=== PATIENT | female | born 1980 | race Caucasian/White ===

== ENCOUNTER 2020-01-05 10:31 | Emergency (ER) | payer OTHER, SELFPAY ==
[2020-01-05 10:43] VITALS: BP 132/90; PULSE 110; RESP 20; TEMP 36.5; O2SAT 97
--- NOTE | 2020-01-05 11:24 | ED.URI ---
HPI - URI/Sore Throat General Chief Complaint: Upper Respiratory Infection Stated Complaint: Sore throat/Cough/Headache Time Seen by Provider: 01/05/20 11:24 Source: patient and RN notes reviewed Mode of arrival: ambulatory Limitations: no limitations History of Present Illness HPI Narrative: 39-year-old female who presents to [facility] care with complaints of sore throat, headache, ear pain, with mild cough for the past 2 days. Patient states that she has had some nasal drainage which is clear, some pressure to her ears, denies any shortness of breath or any wheezing, states that she does have a history of asthma.Patient has clear lungs on auscultation with respirations even and non labored, no tachypnea or accessory muscle use noted SAO2 97% on room air. Patient is on daily Coumadin for history of DVT's in her arms.Patient denies any known exposure to strep or influenza. MD elicited complaint: cough, sore throat, rhinorrhea and other (headache,ear pain) Pertinent past history: asthma Onset (ago): day(s) (2) Consistency: constant Severity: moderate Pain scale (0-10): 5 Description of mucous: clear Able to tolerate fluids by mouth: Yes Exacerbating factors: swallowing Relieving factors: nothing Associated symptoms: headache, rhinorrhea, sore throat, cough and other (ear pain) Treatments prior to arrival: none Related Data Home Medications Medication Instructions Recorded Confirmed bupropion HCl [Wellbutrin XL] 150 mg PO QAM 01/05/20 01/05/20 fluoxetine 60 mg PO DAILY 01/05/20 01/05/20 omeprazole 40 mg PO BID 01/05/20 01/05/20 topiramate 100 mg PO BID 01/05/20 01/05/20 Allergies Allergy/AdvReac Type Severity Reaction Status Date / Time clindamycin Allergy Intermediate Rash Verified 01/05/20 10:50 codeine AdvReac Intermediate Jittery Verified 01/05/20 10:50 Penicillins AdvReac Intermediate Dizziness Verified 01/05/20 10:50 sumatriptan AdvReac Intermediate Nausea and Verified 01/05/20 10:50 Vomiting Review of Systems Review of Systems: Narrative: CONSTITUTIONAL: Denies fever, chills, or sweats. EYES: Denies visual changes, redness, or discharge. ENT:Positive rhinorrhea, congestion, sore throat, and otalgia. CARDIOVASCULAR: Denies chest pain, palpitations, or edema. RESPIRATORY: Positive cough denies dyspnea. GASTROINTESTINAL: Denies abdominal pain, nausea, vomiting, or diarrhea. GENITOURINARY: Denies dysuria or hematuria. SKIN: Denies rash or itching. MUSCULOSKELETAL: Denies back pain, joint pain, or myalgia. NEUROLOGIC: Positive headache, numbness, or weakness. PSYCHIATRIC:History of anxiety and depression. All systems reviewed & are unremarkable except as noted in HPI and below PMFSH Past Medical History Medical History (Updated 01/06/20 @ 10:58 by Eleni Rodrigez NP) Bipolar 1 disorder DVT of upper extremity (deep vein thrombosis) GERD (gastroesophageal reflux disease) IBS (irritable bowel syndrome) Migraines Surgical History Surgical History (Updated 01/05/20 @ 11:39 by Eleni Rodrigez NP) H/O removal of thyroglossal duct cyst History of carpal tunnel repair Social History Social History (Updated 01/06/20 @ 10:56 by Eleni Rodrigez NP) Smoking status: Never smoker Living arrangements: with family Gender identity (if verbalized by the patient): Female Comments At time of signature, agree with nursing past medical, social history. There is no relevant family history pertinent to the presenting complaint Exam Narrative: Exam Narrative: GENERAL: Well-appearing, well-nourished, and in no acute distress. HEAD: Normocephalic, atraumatic. EYES: PERRLA and EOMI. ENT: Nares mild redness, clear rhinorrhea no epistaxis. Mucous membranes moist.TM's normal with good light reflex, throat red no lesions or exudate, no tonsil enlargement NECK: Supple.no lymphadenopathy CHEST: Clear to auscultation. No respiratory distress.dry cough SAO2 97% on room air HEART: Regular rate and rhythm. No murmur heard
== END 2020-01-05 11:53 | disposition home or self-care (01) ==
PROVIDERS: Emergency Provider Registered Nurse
DX: J02.9 Acute pharyngitis, unspecified (principal); J06.9 Acute upper respiratory infection, unspecified; Z86.718 Personal history of other venous thrombosis and embolism; K21.9 Gastro-esophageal reflux disease without esophagitis; Z79.01 Long term (current) use of anticoagulants
CPT/HCPCS: 87081; 87880; 99213; G0463

== ENCOUNTER 2021-12-25 18:08 | Emergency (ER) | payer OTHER, SELFPAY ==
--- NOTE | ~2021-12-25 | XR_ITS ---
EXAMINATION: XR abdomen/kub 1V EXAM DATE: 12/25/2021 19:33 INDICATION: Hematuria,Hypogastric Pain, Hx Of Stones. TECHNIQUE: Frontal projection(s) of the abdomen for interpretation. There is no prior study for sherlyn cline. FINDINGS: Several small pelvic calcifications, most likely phleboliths. No calcifications projecting over the kidney contours or expected ureteral locations. Nonobstructive bowel gas pattern, expected amount of colonic stool. There is no organomegaly. There are no osseous abnormalities identified. IMPRESSION: Pelvic calcifications most likely phleboliths. Reviewed, dictated and finalized at location . ER HOT DIP
[2021-12-25 18:16] VITALS: BP 131/81; PULSE 106; RESP 20; TEMP 37; O2SAT 98
--- NOTE | 2021-12-25 19:08 | ED.FEMALEGU ---
HPI - Female Genitourinary General Chief complaint: Vaginal Bleeding Stated complaint: migraine and heavy menstral flow Time Seen by Provider: 12/25/21 19:08 Source: patient and RN notes reviewed Mode of arrival: ambulatory Limitations: no limitations History of Present Illness HPI Narrative: 41 year old female presents with concern for vaginal bleeding and hematuria. She reports irregular menstrual periods and can not recall her last mentrual period. She also reports history of kidney stones for which she had similar symptoms. She denies abdominal pain. She reports the bleeding started six days ago. She denies fever, bodyaches, chills, sweats. She denies N/V. MD elicited complaint: vaginal bleeding Related Data Home Medications Medication Instructions Recorded Confirmed bupropion HCl [Wellbutrin XL] 150 mg PO QAM 01/05/20 12/25/21 fluoxetine 60 mg PO DAILY 01/05/20 12/25/21 omeprazole 40 mg PO BID 01/05/20 12/25/21 topiramate 100 mg PO BID 01/05/20 12/25/21 aripiprazole 2 mg PO DAILY 12/25/21 12/25/21 aripiprazole 2 mg PO DAILY 12/25/21 12/25/21 Allergies Allergy/AdvReac Type Severity Reaction Status Date / Time clindamycin Allergy Intermediate Rash Verified 12/25/21 18:24 codeine AdvReac Intermediate Jittery Verified 12/25/21 18:24 Penicillins AdvReac Intermediate Dizziness Verified 12/25/21 18:24 sumatriptan AdvReac Intermediate Nausea and Verified 12/25/21 18:24 Vomiting Review of Systems Review of Systems: CONSTITUTIONAL: Denies malaise, chills, sweats, or fever. CARDIOVASCULAR: Denies chest pain, palpitations, or edema. RESPIRATORY: Denies cough or dyspnea. GASTROINTESTINAL: Denies abdominal pain, nausea, vomiting, diarrhea GENITOURINARY: Denies dysuria, frequency, urgency, suprapubic pressure. Denies flank pain. Reports vaginal bleeding and hematuria. SKIN: Denies rash or itching. MUSCULOSKELETAL: Denies back pain or myalgia. All systems reviewed & are unremarkable except as noted in HPI and below PMFSH Past Medical History Medical History (Updated 12/25/21 @ 19:48 by Sierra Hester NP) Bipolar 1 disorder DVT of upper extremity (deep vein thrombosis) GERD (gastroesophageal reflux disease) IBS (irritable bowel syndrome) Migraines Surgical History Surgical History (Updated 01/05/20 @ 11:39 by Eleni Rodrigez NP) H/O removal of thyroglossal duct cyst History of carpal tunnel repair Social History Social History (Updated 01/06/20 @ 10:56 by Eleni Rodrigez NP) Smoking status: Never smoker Gender identity (if verbalized by the patient): Female Comments At time of signature, agree with nursing past medical, surgical, social and family history. There is no relevant family history pertinent to the presenting complaint Exam Narrative: GENERAL: Well-appearing, well-nourished, and in no acute distress. HEAD: Normocephalic. EYES: PERRLA, conjunctivae clear. NECK: Supple. No lymphadenopathy CHEST: Clear to auscultation. No respiratory distress. HEART: Regular rate and rhythm. ABDOMEN: Soft, nontender upon palpation, nondistended, normal active bowel sounds, no palpable or pulsatile masses, no guarding. No CVA tenderness SKIN: Warm, dry, no rash. NEURO: Alert and oriented x3. PSYCH: Normal mood and affect Course Course Emergency Course: Patient is aware of, understands and agrees to treatment plan. Patient agrees to proceed directly to the emergency department. Portions of this record may have been created with voice recognition software Level of Care: Express Care Visit Vital Signs Vital signs: Vital Signs Temperature 98.6 F 12/25/21 18:16 Pulse Rate 106 H 12/25/21 18:16 Respiratory Rate 20 12/25/21 18:16 Blood Pressure 131/81 12/25/21 18:16 Pulse Oximetry 98 12/25/21 18:16 Temperature 98.6 F 12/25/21 18:16 Pulse Rate 106 H 12/25/21 18:16 Respiratory Rate 20 12/25/21 18:16 Blood Pressure 131/81 12/25/21 18:16 Pulse Oximetry 98
--- NOTE | 2021-12-25 19:53 | PC.NURSE ---
NO UC ORDERED PER PROVIDER MARIJA
== END 2021-12-25 19:55 | disposition short-term general hospital (02) ==
PROVIDERS: Emergency Provider Nurse Practitioner; PCP Family Medicine
DX: N93.9 Abnormal uterine and vaginal bleeding, unspecified (principal); K21.9 Gastro-esophageal reflux disease without esophagitis; F31.9 Bipolar disorder, unspecified
CPT/HCPCS: 74018; 81003; 81025; 99213; G0463

== ENCOUNTER 2022-02-11 17:13 | Emergency (ER) | payer OTHER, SELFPAY ==
--- NOTE | 2022-02-11 17:17 | ED.URI ---
HPI - URI/Sore Throat General Chief Complaint: Ear Stated Complaint: ear and sinus pain Time Seen by Provider: 02/11/22 17:18 Source: patient and RN notes reviewed History of Present Illness HPI Narrative: Patient is a 41-year-old female who presents the urgent care with complaints of bilateral ear pain for the last 4 months. Patient states that they feel full . Patient states that for the last 2 days she has had some sinus pressure. Patient has been taking ibuprofen for the pain. Denies of any fever, nausea, vomiting or cough. No other acute complaints. No acute distress noted. Patient aware of the plan of care. Some parts of this dictation were generated by voice recognition software and may contain typographical and/or grammatical inaccuracies. Related Data Home Medications Medication Instructions Recorded Confirmed bupropion HCl [Wellbutrin XL] 150 mg PO QAM 01/05/20 12/25/21 aripiprazole [Abilify] 2 mg PO DAILY 02/11/22 02/11/22 fluoxetine [Prozac] 40 mg PO DAILY 02/11/22 02/11/22 rivaroxaban [Xarelto] 10 mg PO DAILY 02/11/22 02/11/22 Allergies Allergy/AdvReac Type Severity Reaction Status Date / Time clindamycin Allergy Intermediate Rash Verified 02/11/22 17:31 codeine AdvReac Intermediate Jittery Verified 02/11/22 17:31 Penicillins AdvReac Intermediate Dizziness Verified 02/11/22 17:31 sumatriptan AdvReac Intermediate Nausea and Verified 02/11/22 17:31 Vomiting Review of Systems Review of Systems: CONSTITUTIONAL: Denies fever, chills, or sweats. EYES: Denies visual changes, redness, or discharge. ENT: Reports of sinus pressure/congestion and bilateral otalgia CARDIOVASCULAR: Denies chest pain, palpitations, or edema. RESPIRATORY: Denies cough or dyspnea. GASTROINTESTINAL: Denies abdominal pain, nausea, vomiting, or diarrhea. GENITOURINARY: Denies dysuria or hematuria. SKIN: Denies rash or itching. MUSCULOSKELETAL: Denies back pain, joint pain, or myalgia. NEUROLOGIC: Denies headache, numbness, or weakness. All other systems reviewed are negative, except as documented in HPI. [facility] Past Medical History Medical History (Updated 02/11/22 @ 17:49 by MIKA Bartlett) Bipolar 1 disorder DVT of upper extremity (deep vein thrombosis) GERD (gastroesophageal reflux disease) IBS (irritable bowel syndrome) Migraines Surgical History Surgical History (Updated 01/05/20 @ 11:39 by Eleni Rodrigez NP) H/O removal of thyroglossal duct cyst History of carpal tunnel repair Social History Social History (Updated 01/06/20 @ 10:56 by Eleni Rodrigez NP) Smoking status: Never smoker Gender identity (if verbalized by the patient): Female Comments At the time of my signature, I reviewed and agree with the nursing past medical, surgical, social, and family history. There is no relevant family history pertinent to the patient complaint. Exam Narrative: GENERAL: This is a well-nourished, well-developed patient, in no apparent distress. HEAD: normocephalic, atraumatic. EYES: PERRL. Sclera clear/white. Vision is grossly intact. EARS: External ears normal, auditory canals clear and without drainage, TMs normal without perforation. Hearing grossly intact. NOSE: External nose normal with no obvious nasal discharge, nares without redness, no rhinorrhea. THROAT: Mucous membranes moist, posterior pharynx clear. Moderate postnasal drainage NECK: Neck supple CARDIOVASCULAR: Regular rate and rhythm without murmurs, gallops, or rubs. RESPIRATORY: Clear to auscultation. Breath sounds equal bilaterally. No wheezes, rales, or rhonchi. SKIN: warm, intact with no suspicious lesions or rash, good texture and turgor. NEURO: awake, alert, and oriented to person, place and time. There were no obvious focal neurologic abnormalities. EXTREMITIES: No clubbing, cyanosis, or edema. Course Course Level of Care: Express Care Visit Vital Signs Vital signs: Vital Signs Temperature 96.8 F L 02/11/22 17:22 Puls
[2022-02-11 17:22] VITALS: BP 103/64; PULSE 107; RESP 14; TEMP 36; O2SAT 98
== END 2022-02-11 17:55 | disposition home or self-care (01) ==
PROVIDERS: Emergency Provider Nurse Practitioner Family; PCP Family Medicine
DX: H92.03 Otalgia, bilateral (principal); K21.9 Gastro-esophageal reflux disease without esophagitis; Z86.718 Personal history of other venous thrombosis and embolism; F31.9 Bipolar disorder, unspecified
CPT/HCPCS: 99211; G0463

== ENCOUNTER 2022-04-18 15:29 | Emergency (ER) | payer OTHER, SELFPAY ==
--- NOTE | 2022-04-18 15:32 | ED.DENTAL ---
HPI - Dental/Oral General Chief complaint: Dental/Oral Stated complaint: Toothache Time Seen by Provider: 04/18/22 15:33 Source: patient and RN notes reviewed History of Present Illness HPI Narrative: Patient is a 42-year-old female who presents the urgent care with a friend with complaints of upper and lower right dental pain and swelling. Patient denies of any fever, nausea, vomiting. Patient states that started 2 days ago and she does have a dentist in which she will call on Thursday. Patient has been taking naproxen and ibuprofen without much relief. No other acute complaints. No acute distress noted. Patient aware of the plan of care. Some parts of this dictation were generated by voice recognition software and may contain typographical and/or grammatical inaccuracies. Related Data Home Medications Medication Instructions Recorded Confirmed bupropion HCl 150 mg 24 hr tablet, 150 mg PO BID 01/05/20 04/18/22 extended release (Wellbutrin XL) aripiprazole 2 mg tablet (Abilify) 2 mg PO DAILY 02/11/22 04/18/22 fluoxetine 40 mg capsule (Prozac) 40 mg PO DAILY 02/11/22 04/18/22 rivaroxaban 10 mg tablet (Xarelto) 10 mg PO DAILY 02/11/22 04/18/22 dicyclomine 20 mg tablet 20 tablet PO TID PRN Acid Reflux 04/18/22 04/18/22 omeprazole 40 mg capsule,delayed 40 mg PO DAILY 04/18/22 release Allergies Allergy/AdvReac Type Severity Reaction Status Date / Time clindamycin Allergy Intermediate Rash Verified 04/18/22 15:41 codeine AdvReac Intermediate Jittery Verified 04/18/22 15:41 Penicillins AdvReac Intermediate Dizziness Verified 04/18/22 15:41 sumatriptan AdvReac Intermediate Nausea and Verified 04/18/22 15:41 Vomiting Review of Systems Review of Systems: CONSTITUTIONAL: Denies fever, chills, or sweats. EYES: Denies visual changes, redness, or discharge. ENT: Denies rhinorrhea, congestion, sore throat, or otalgia. Reports of upper right and lower right dental pain and swelling CARDIOVASCULAR: Denies chest pain, palpitations, or edema. RESPIRATORY: Denies cough or dyspnea. GASTROINTESTINAL: Denies abdominal pain, nausea, vomiting, or diarrhea. GENITOURINARY: Denies dysuria or hematuria. SKIN: Denies rash or itching. MUSCULOSKELETAL: Denies back pain, joint pain, or myalgia. NEUROLOGIC: Denies headache, numbness, or weakness. All other systems reviewed are negative, except as documented in HPI. [facility] Past Medical History Medical History (Updated 04/18/22 @ 16:03 by MIKA Bartlett) Bipolar 1 disorder DVT of upper extremity (deep vein thrombosis) GERD (gastroesophageal reflux disease) IBS (irritable bowel syndrome) Migraines Surgical History Surgical History (Updated 01/05/20 @ 11:39 by Eleni Rodrigez NP) H/O removal of thyroglossal duct cyst History of carpal tunnel repair Social History Social History (Updated 01/06/20 @ 10:56 by Eleni Rodrigez NP) Smoking status: Never smoker Gender identity (if verbalized by the patient): Female Comments At the time of my signature, I reviewed and agree with the nursing past medical, surgical, social, and family history. There is no relevant family history pertinent to the patient complaint. Exam Narrative: GENERAL: This is a well-nourished, well-developed patient, in no apparent distress. HEAD: normocephalic, atraumatic. EYES: PERRL. Sclera clear/white. Vision is grossly intact. EARS: External ears normal, auditory canals clear and without drainage, TMs normal without perforation. Hearing grossly intact. NOSE: External nose normal with no obvious nasal discharge, nares without redness, no rhinorrhea. THROAT: Mucous membranes moist, posterior pharynx clear. NECK: Neck supple, non-tender without lymphadenopathy DENTAL: Avulsed carious upper right canine, lower right canine with surrounding abscess/erythema. Poor oral hygiene throughout with mild carious lesions and missing dentition. CARDIOVASCULAR: Regular rate and rhythm without murmurs, gallops,
[2022-04-18 15:39] VITALS: BP 129/74; PULSE 95; RESP 20; TEMP 37.3; O2SAT 98
[2022-04-18 15:45] VITALS: BP 144/94; PULSE 94; RESP 16; TEMP 36.4; O2SAT 99
== END 2022-04-18 16:10 | disposition home or self-care (01) ==
PROVIDERS: Emergency Provider Nurse Practitioner Family; PCP Family Medicine
DX: K04.7 Periapical abscess without sinus (principal); K02.9 Dental caries, unspecified; K21.9 Gastro-esophageal reflux disease without esophagitis; Z86.718 Personal history of other venous thrombosis and embolism; F31.9 Bipolar disorder, unspecified
CPT/HCPCS: 99213; G0463

== ENCOUNTER 2022-07-01 17:21 | Emergency (ER) | payer OTHER, SELFPAY ==
--- NOTE | ~2022-07-01 | XR_ITS ---
EXAM: XR abdomen/kub 1V DATE: 07/01/2022 18:10 HISTORY: RIGHT FLANK PAIN NO URINARY SYMPTOMS HX IBS . COMPARISON: 12/25/2021. FINDINGS: Clear lung bases. Normal bowel gas pattern. No organomegaly. Pelvic phleboliths. Regional bones and soft tissues normal for age. IMPRESSION: No radiographic evidence of urolithiasis or obstruction or ileus. Reviewed, dictated and finalized at location [facility].
[2022-07-01 17:29] VITALS: BP 134/87; PULSE 95; RESP 16; TEMP 36; O2SAT 99
--- NOTE | 2022-07-01 17:45 | ED.ABDPAIN ---
HPI - Abdominal Pain General Chief Complaint: Abdominal Pain Stated Complaint: Abdominal Pain Time Seen by Provider: 07/01/22 17:46 Source: patient Mode of arrival: ambulatory Limitations: no limitations History of Present Illness HPI narrative: 42 y/o female presented for c/o right flank pain for about 20 min [employer]. Rates pain 8/10, sudden onset, radiates from right lateral abdomen to back. Denies associated nausea, vomiting, constipation, diarrhea, hematuria, fever/chills, cough or shortness of breath. Endorses history of IBS but states this does not feel the same. Related Data Home Medications Medication Instructions Recorded Confirmed bupropion HCl 150 mg 24 hr tablet, 150 mg PO BID 01/05/20 04/18/22 extended release (Wellbutrin XL) aripiprazole 2 mg tablet (Abilify) 2 mg PO DAILY 02/11/22 04/18/22 fluoxetine 40 mg capsule (Prozac) 40 mg PO DAILY 02/11/22 04/18/22 rivaroxaban 10 mg tablet (Xarelto) 10 mg PO DAILY 02/11/22 04/18/22 dicyclomine 20 mg tablet 20 tablet PO TID PRN Acid Reflux 04/18/22 04/18/22 omeprazole 40 mg capsule,delayed 40 mg PO DAILY 04/18/22 release Allergies Allergy/AdvReac Type Severity Reaction Status Date / Time clindamycin Allergy Intermediate Rash Verified 07/01/22 17:45 codeine AdvReac Intermediate Jittery Verified 07/01/22 17:45 Penicillins AdvReac Intermediate Dizziness Verified 07/01/22 17:45 sumatriptan AdvReac Intermediate Nausea and Verified 07/01/22 17:45 Vomiting Review of Systems Review of Systems: CONSTITUTIONAL: Denies body aches, fever, chills EYES: Denies visual changes CARDIOVASCULAR: Denies chest pain, palpitations, or edema. RESPIRATORY: Denies cough or dyspnea. GASTROINTESTINAL: Denies abdominal pain, nausea, vomiting, or diarrhea. SKIN: Denies rash, itching, or wounds. MUSCULOSKELETAL: reports back pain NEUROLOGIC: Denies headache, numbness, tingling, or weakness. All systems reviewed & are unremarkable except as noted in HPI and below PMFSH Past Medical History Medical History Bipolar 1 disorder DVT of upper extremity (deep vein thrombosis) GERD (gastroesophageal reflux disease) IBS (irritable bowel syndrome) Migraines Surgical History Surgical History H/O removal of thyroglossal duct cyst History of carpal tunnel repair Social History Social History Smoking status: Never smoker Gender identity (if verbalized by the patient): Female Comments At time of signature, I have reviewed and agree with nursing past medical, surgical, social and family history unless otherwise noted. Please see nursing chart for further information. There is no relevant family history pertinent to the presenting complaint Exam Narrative: GENERAL: Well-appearing, well-nourished, and in no acute distress. EYES: conjunctivae clear CHEST: Speaks in full sentences. No respiratory distress. HEART: Regular rate and rhythm. Normal and equal peripheral pulses. ABD: Soft, round, mild tenderness to RLQ; BS+x4; Right flank pain is reported without tenderness to palpation. Right lateral abdominal/lower rib pain with palpation. SKIN: Warm, dry, no rash. NEURO: Alert and oriented x3. Course Course Emergency Course: Patient is aware of diagnosis, understands and agrees to treatment plan. Anticipatory guidance given. Patient agrees to follow-up as directed and is aware of reasons to seek care at the emergency department. Portions of this record may have been created with voice recognition software Level of Care: Express Care Visit Vital Signs Vital signs: Vital Signs Temperature 96.8 F L 07/01/22 17:29 Pulse Rate 95 07/01/22 17:29 Respiratory Rate 16 07/01/22 17:29 Blood Pressure 134/87 07/01/22 17:29 Pulse Oximetry 99 07/01/22 17:29 Oxygen Delivery Room Air 07/01/22 17:29 [place]
== END 2022-07-01 18:46 | disposition home or self-care (01) ==
PROVIDERS: Emergency Provider Nurse Practitioner Family; PCP Family Medicine
DX: R10.9 Unspecified abdominal pain (principal); K21.9 Gastro-esophageal reflux disease without esophagitis; Z86.718 Personal history of other venous thrombosis and embolism; F31.9 Bipolar disorder, unspecified
CPT/HCPCS: 74018; 99213; G0463

== ENCOUNTER 2022-07-17 17:45 | Emergency (ER) | payer OTHER, SELFPAY ==
--- NOTE | 2022-07-17 17:52 | ED.URI ---
HPI - URI/Sore Throat General Chief Complaint: Ear Stated Complaint: Left Ear Pain Time Seen by Provider: 07/17/22 17:52 Source: patient and RN notes reviewed History of Present Illness HPI Narrative: Patient is a 42-year-old female who presents the urgent care with complaints of left ear pain that started last night. Patient has not taken anything [id number] for her symptoms. Patient is denying of any ear pain at this time or other related upper respiratory symptoms. No other acute complaints. No acute distress noted. Patient aware of the plan of care. Some parts of this dictation were generated by voice recognition software and may contain typographical and/or grammatical inaccuracies. Related Data Home Medications Medication Instructions Recorded Confirmed bupropion HCl 150 mg 24 hr tablet, 150 mg PO BID 01/05/20 07/01/22 extended release (Wellbutrin XL) fluoxetine 40 mg capsule (Prozac) 40 mg PO DAILY 02/11/22 07/01/22 rivaroxaban 10 mg tablet (Xarelto) 10 mg PO DAILY 02/11/22 07/01/22 omeprazole 40 mg capsule,delayed 40 mg PO DAILY 04/18/22 07/01/22 release Allergies Allergy/AdvReac Type Severity Reaction Status Date / Time clindamycin Allergy Intermediate Rash Verified 07/17/22 18:01 codeine AdvReac Intermediate Jittery Verified 07/17/22 18:01 Penicillins AdvReac Intermediate Dizziness Verified 07/17/22 18:01 sumatriptan AdvReac Intermediate Nausea and Verified 07/17/22 18:01 Vomiting Review of Systems Review of Systems: CONSTITUTIONAL: Denies fever, chills, or sweats. EYES: Denies visual changes, redness, or discharge. ENT: Denies rhinorrhea, congestion, sore throat. Reports of left otalgia CARDIOVASCULAR: Denies chest pain, palpitations, or edema. RESPIRATORY: Denies cough or dyspnea. GASTROINTESTINAL: Denies abdominal pain, nausea, vomiting, or diarrhea. GENITOURINARY: Denies dysuria or hematuria. SKIN: Denies rash or itching. MUSCULOSKELETAL: Denies back pain, joint pain, or myalgia. NEUROLOGIC: Denies headache, numbness, or weakness. All other systems reviewed are negative, except as documented in HPI. [facility] Past Medical History Medical History Bipolar 1 disorder DVT of upper extremity (deep vein thrombosis) GERD (gastroesophageal reflux disease) IBS (irritable bowel syndrome) Migraines Surgical History Surgical History H/O removal of thyroglossal duct cyst History of carpal tunnel repair Social History Social History Smoking status: Never smoker Gender identity (if verbalized by the patient): Female Comments At the time of my signature, I reviewed and agree with the nursing past medical, surgical, social, and family history. There is no relevant family history pertinent to the patient complaint. Exam Narrative: GENERAL: This is a well-nourished, well-developed patient, in no apparent distress. HEAD: normocephalic, atraumatic. EYES: PERRL. Sclera clear/white. Vision is grossly intact. EARS: External ears normal, auditory canals clear and without drainage, TMs normal without perforation. Hearing grossly intact. NOSE: External nose normal with no obvious nasal discharge, nares without redness, no rhinorrhea. THROAT: Mucous membranes moist, posterior pharynx clear. Mild postnasal drainage NECK: Neck supple, CARDIOVASCULAR: Regular rate and rhythm without murmurs, gallops, or rubs. RESPIRATORY: Clear to auscultation. Breath sounds equal bilaterally. No wheezes, rales, or rhonchi. SKIN: warm, intact with no suspicious lesions or rash, good texture and turgor. NEURO: awake, alert, and oriented to person, place and time. There were no obvious focal neurologic abnormalities. EXTREMITIES: No clubbing, cyanosis, or edema. Course Course Level of Care: Express Care Visit Vital Signs Vital signs: Vital Signs
[2022-07-17 17:54] VITALS: BP 109/65; PULSE 96; RESP 16; TEMP 36.8; O2SAT 99
== END 2022-07-17 18:11 | disposition home or self-care (01) ==
PROVIDERS: Emergency Provider Nurse Practitioner Family; PCP Family Medicine
DX: H92.02 Otalgia, left ear (principal); F31.9 Bipolar disorder, unspecified; Z86.718 Personal history of other venous thrombosis and embolism; K21.9 Gastro-esophageal reflux disease without esophagitis; K58.9 Irritable bowel syndrome, unspecified
CPT/HCPCS: 99211; G0463

== ENCOUNTER 2022-08-30 13:16 | Emergency (ER) | payer OTHER, SELFPAY ==
[2022-08-30 14:30] VITALS: BP 132/84; PULSE 100; RESP 20; TEMP 36.8; O2SAT 99
--- NOTE | 2022-08-30 16:10 | ED.SKABFB ---
HPI - Skin/Abscess/Foreign Bdy General Chief complaint: Skin/Abscess/Foreign Body Stated complaint: Skin Sore Time Seen by Provider: 08/30/22 16:10 Source: patient, RN notes reviewed and old records reviewed Mode of arrival: ambulatory Limitations: no limitations History of Present Illness HPI narrative: 42-year-old female who presents to [facility] Care with complaints of red itchy spots to bilateral arms and to the right side her face. Patient has not taken anything [id number] for itching or rash. Patient has reported no new medications, soaps, foods,laundry or personal care products. Patient reports that no one in household has same rash. MD complaint: rash Onset (ago): day(s) (2) Treatments prior to arrival: none Related Data Home Medications Medication Instructions Recorded Confirmed bupropion HCl 150 mg 24 hr tablet, 150 mg PO BID 01/05/20 08/30/22 extended release (Wellbutrin XL) fluoxetine 40 mg capsule (Prozac) 40 mg PO DAILY 02/11/22 08/30/22 rivaroxaban 10 mg tablet (Xarelto) 10 mg PO DAILY 02/11/22 08/30/22 omeprazole 40 mg capsule,delayed 40 mg PO BID 04/18/22 08/30/22 release aripiprazole 2 mg tablet 2 mg PO DAILY 08/30/22 08/30/22 Allergies Allergy/AdvReac Type Severity Reaction Status Date / Time clindamycin Allergy Intermediate Rash Verified 08/30/22 14:45 codeine AdvReac Intermediate Jittery Verified 08/30/22 14:45 Penicillins AdvReac Intermediate Dizziness Verified 08/30/22 14:45 sumatriptan AdvReac Intermediate Nausea and Verified 08/30/22 14:45 Vomiting Review of Systems Review of Systems: CONSTITUTIONAL: Denies fever, chills, or sweats. CARDIOVASCULAR: Denies chest pain, palpitations, or edema. RESPIRATORY: Denies cough or dyspnea. SKIN: Reports small red raised rash to forearm for 2 days and small area to right side of chin face for 1 day with no drainage. MUSCULOSKELETAL: Denies joint pain or myalgia. NEUROLOGIC: Denies headache, numbness, or weakness. All systems reviewed & are unremarkable except as noted in HPI and below PMFSH Past Medical History Medical History Bipolar 1 disorder DVT of upper extremity (deep vein thrombosis) GERD (gastroesophageal reflux disease) IBS (irritable bowel syndrome) Migraines Surgical History Surgical History H/O removal of thyroglossal duct cyst History of carpal tunnel repair Social History Social History Smoking status: Never smoker Gender identity (if verbalized by the patient): Female Comments At time of signature, agree with nursing past medical, surgical, social and family history. There is no relevant family history pertinent to the presenting complaint Exam Narrative: GENERAL: Well-appearing, well-nourished, and in no acute distress. HEAD: Normocephalic, atraumatic. EYES: PERRLA, conjunctivae clear, and EOMI. ENT: Mucous membranes moist. Oropharynx without edema, erythema or lesions. NECK: Supple. No lymphadenopathy CHEST: Clear to auscultation. No respiratory distress. SAO2 99% on room air HEART: Regular rate and rhythm. SKIN: Warm, dry.? Patches of red raised rash which is itchy to bilateral arms and right chin and today to right side of face NEURO:? Alert and oriented x3. PSYCH: Normal mood and affect Course Course Emergency Course: Patient is aware of diagnosis, understands and agrees to treatment plan.? Anticipatory guidance given.? Patient agrees to follow-up as directed and is aware of reasons to seek care at the emergency department. Portions of this record may have been created with voice recognition software Level of Care: Express Care Visit Vital Signs Vital signs: Vital Signs Temperature 36.8 C 08/30/22 14:30 Pulse Rate 100 08/30/22 14:30 Respiratory Rate 20 08/30/22 14:30 Blood Pressure 132/84 08/30/22
== END 2022-08-30 16:30 | disposition home or self-care (01) ==
PROVIDERS: Emergency Provider Registered Nurse; PCP Family Medicine
DX: L25.9 Unspecified contact dermatitis, unspecified cause (principal)
CPT/HCPCS: 99213; G0463

== ENCOUNTER 2022-09-24 16:10 | Emergency (ER) | payer OTHER, SELFPAY ==
[2022-09-24 16:42] VITALS: BP 129/84; PULSE 139; RESP 20; TEMP 36.9; O2SAT 98
--- NOTE | 2022-09-24 18:35 | ED.URI ---
HPI - URI/Sore Throat General Chief Complaint: Upper Respiratory Infection Stated Complaint: Sore Thorat/Ear Pain Time Seen by Provider: 09/24/22 18:35 Source: patient, family, RN notes reviewed and old records reviewed Mode of arrival: ambulatory Limitations: no limitations History of Present Illness HPI Narrative: 42 year old female who presents to [facility] care with complaints of 2 day history of sore throat,fevers, headaches, ear pain and also some sinus drainage. Patient reports that she has taken Tylenol,Benadryl, and Tylenol cold and sinus medication without resolution of symptoms. Patient reports that she had COVID in May of this year, has not had COVID vaccinations or flu shot. MD elicited complaint: fever, cough, sore throat, rhinorrhea and nasal congestion Pertinent past history: other (on Xaralto) Onset (ago): day(s) (2) Pain scale (0-10): 8 Treatments prior to arrival: acetaminophen and cold medicine Related Data Home Medications Medication Instructions Recorded Confirmed bupropion HCl 150 mg 24 hr tablet, 150 mg PO BID 01/05/20 09/24/22 extended release (Wellbutrin XL) fluoxetine 40 mg capsule (Prozac) 40 mg PO DAILY 02/11/22 09/24/22 rivaroxaban 10 mg tablet (Xarelto) 10 mg PO DAILY 02/11/22 09/24/22 aripiprazole 2 mg tablet 2 mg PO DAILY 08/30/22 09/24/22 Allergies Allergy/AdvReac Type Severity Reaction Status Date / Time clindamycin Allergy Intermediate Rash Verified 09/24/22 16:51 codeine AdvReac Intermediate Jittery Verified 09/24/22 16:51 Penicillins AdvReac Intermediate Dizziness Verified 09/24/22 16:51 sumatriptan AdvReac Intermediate Nausea and Verified 09/24/22 16:51 Vomiting Review of Systems Review of Systems: CONSTITUTIONAL: Reports malaise, chills, sweats, or fever. EYES: Denies visual changes, redness, or discharge. ENT: Reports rhinorrhea, congestion, sinus pain, otalgia and sore throat. CARDIOVASCULAR: Denies chest pain, palpitations, or edema. RESPIRATORY: Reports cough.? Denies dyspnea. GASTROINTESTINAL: Denies abdominal pain, nausea, vomiting, diarrhea SKIN: Denies rash or itching. MUSCULOSKELETAL: Denies myalgia. NEUROLOGIC: Reports headache. All systems reviewed & are unremarkable except as noted in HPI and below PMFSH Past Medical History Medical History Bipolar 1 disorder DVT of upper extremity (deep vein thrombosis) GERD (gastroesophageal reflux disease) IBS (irritable bowel syndrome) Migraines Surgical History Surgical History H/O removal of thyroglossal duct cyst History of carpal tunnel repair Social History Social History Smoking status: Never smoker Gender identity (if verbalized by the patient): Female Comments At time of signature, agree with nursing past medical, surgical, social and family history. There is no relevant family history pertinent to the presenting complaint Exam Narrative: GENERAL: Well-appearing, well-nourished, and in no acute distress. HEAD: Normocephalic EYES: PERRLA, conjunctivae clear ENT: Nares clear, turbinates edematous and erythematous, clear discharge. Mucous membranes moist. TM pearly chirinos with dull light reflex bilaterally; no tragal tenderness. Oropharynx erythematous without lesions. Tonsils red and enlarged and without exudate, no drooling, no hoarseness, no trismus, uvula midline.some post nasal drainage NECK: Supple. lymphadenopathy CHEST: Clear to auscultation, breath sounds equal. No wheezing, rhonchi, rales, or stridor. No respiratory distress, speaks in full sentences. SAO2 98% on room air HEART: Regular rate and rhythm. No murmur heard. SKIN: Warm, dry, no rash. NEURO: Alert and oriented x3. PSYCH: Normal mood and affect Course Course Emergency Course: Patient is aware of diagnosis, understands and agrees to t
== END 2022-09-24 18:57 | disposition home or self-care (01) ==
PROVIDERS: Emergency Provider Registered Nurse; PCP Family Medicine
DX: J02.0 Streptococcal pharyngitis (principal); K21.9 Gastro-esophageal reflux disease without esophagitis; Z86.718 Personal history of other venous thrombosis and embolism; Z79.01 Long term (current) use of anticoagulants
CPT/HCPCS: 87880; 99213; G0463

== ENCOUNTER 2022-10-30 08:02 | Emergency (ER) | payer OTHER, SELFPAY ==
--- NOTE | 2022-10-30 08:03 | ED.URI ---
HPI - URI/Sore Throat General Chief Complaint: Upper Respiratory Infection Stated Complaint: Sore Throat Time Seen by Provider: 10/30/22 08:04 Source: patient and RN notes reviewed History of Present Illness HPI Narrative: patient is a 42-year-old female who presents to urgent care with complaints of sore throat, congestion, headache and cough. Patient states it started 3 days ago. Patient has not taken anything [id number] for her symptoms. Denies any ill exposures or fever. Denies any nausea or vomiting. No other acute complaints. No acute distress noted. Patient aware of the plan of care. Some parts of this dictation were generated by voice recognition software and may contain typographical and/or grammatical inaccuracies. Related Data Home Medications Medication Instructions Recorded Confirmed bupropion HCl 150 mg 24 hr tablet, 150 mg PO BID 01/05/20 09/24/22 extended release (Wellbutrin XL) fluoxetine 40 mg capsule (Prozac) 40 mg PO DAILY 02/11/22 09/24/22 aripiprazole 2 mg tablet 2 mg PO DAILY 08/30/22 09/24/22 rivaroxaban 20 mg tablet (Xarelto) 20 mg PO DAILY 10/30/22 10/30/22 Allergies Allergy/AdvReac Type Severity Reaction Status Date / Time clindamycin Allergy Intermediate Rash Verified 10/30/22 08:19 codeine AdvReac Intermediate Jittery Verified 10/30/22 08:19 Penicillins AdvReac Intermediate Dizziness Verified 10/30/22 08:19 sumatriptan AdvReac Intermediate Nausea and Verified 10/30/22 08:19 Vomiting Review of Systems Review of Systems: CONSTITUTIONAL: Denies fever, chills, or sweats. EYES: Denies visual changes, redness, or discharge. ENT: Reports of congestion, postnasal drainage, sore throat CARDIOVASCULAR: Denies chest pain, palpitations, or edema. RESPIRATORY: reports of cough GASTROINTESTINAL: Denies abdominal pain, nausea, vomiting, or diarrhea. GENITOURINARY: Denies dysuria or hematuria. SKIN: Denies rash or itching. MUSCULOSKELETAL: Denies back pain, joint pain, or myalgia. NEUROLOGIC: reports of headache All other systems reviewed are negative, except as documented in HPI. [facility] Past Medical History Medical History Bipolar 1 disorder DVT of upper extremity (deep vein thrombosis) GERD (gastroesophageal reflux disease) IBS (irritable bowel syndrome) Migraines Surgical History Surgical History H/O removal of thyroglossal duct cyst History of carpal tunnel repair Social History Social History Smoking status: Never smoker Gender identity (if verbalized by the patient): Female Comments At the time of my signature, I reviewed and agree with the nursing past medical, surgical, social, and family history. There is no relevant family history pertinent to the patient complaint. Exam Narrative: GENERAL: This is a well-nourished, well-developed patient, in no apparent distress. HEAD: normocephalic, atraumatic. EYES: PERRL. Sclera clear/white. Vision is grossly intact. EARS: External ears normal, auditory canals clear and without drainage, TMs normal without perforation. Hearing grossly intact. NOSE: External nose normal with no obvious nasal discharge, nares without redness, no rhinorrhea. THROAT: Mucous membranes moist, posterior pharynx clear. mild postnasal drainage NECK: Neck supple, non-tender without lymphadenopathy CARDIOVASCULAR: Regular rate and rhythm without murmurs, gallops, or rubs. RESPIRATORY: Clear to auscultation. Breath sounds equal bilaterally. No wheezes, rales, or rhonchi. SKIN: warm, intact with no suspicious lesions or rash, good texture and turgor. NEURO: awake, alert, and oriented to person, place and time. There were no obvious focal neurologic abnormalities. EXTREMITIES: No clubbing, cyanosis, or edema. Course Course Level of Care: Express Care Visit Vital Signs Vital si
[2022-10-30 08:16] VITALS: BP 131/83; PULSE 137; RESP 16; TEMP 36.6; O2SAT 97
== END 2022-10-30 08:28 | disposition home or self-care (01) ==
PROVIDERS: Emergency Provider Nurse Practitioner Family; PCP Family Medicine
DX: J02.9 Acute pharyngitis, unspecified (principal); Z20.822 Contact with and (suspected) exposure to COVID-19; K21.9 Gastro-esophageal reflux disease without esophagitis; Z86.718 Personal history of other venous thrombosis and embolism; Z79.01 Long term (current) use of anticoagulants
CPT/HCPCS: 87081; 87426; 87880; 99213; C9803; G0463

== ENCOUNTER 2023-04-14 19:19 | Emergency (ER) | payer OTHER, SELFPAY ==
[2023-04-14 19:24] VITALS: BP 127/83; PULSE 91; RESP 20; TEMP 36.9; O2SAT 98
--- NOTE | 2023-04-14 19:24 | ED.SKABFB ---
HPI - Skin/Abscess/Foreign Bdy General Chief complaint: Skin/Abscess/Foreign Body Stated complaint: rash on stomach and leg Time Seen by Provider: 04/14/23 19:24 Source: patient and RN notes reviewed History of Present Illness HPI narrative: Patient is a 43-year-old female presents to urgent care with complaints of possible rash to the lower right abdomen and right thigh. Patient states that she noticed early this morning. Patient is on Xarelto but has had no issues with bleeding on the medication. Patient states she has DVT history and bilateral arms. Patient denies any chest pain or shortness of breath. No recent change in sore also dose. Patient denies any recent falls or trauma to the areas of concern. States that the areas do not itch or cause any pain. No other acute complaints. No acute distress noted. Patient aware of the plan of care. Some parts of this dictation were generated by voice recognition software and may contain typographical and/or grammatical inaccuracies. Related Data Home Medications Medication Instructions Recorded Confirmed bupropion HCl 150 mg 24 hr tablet, 150 mg PO BID 01/05/20 04/14/23 extended release (Wellbutrin XL) fluoxetine 40 mg capsule (Prozac) 40 mg PO DAILY 02/11/22 04/14/23 aripiprazole 2 mg tablet 2 mg PO DAILY 08/30/22 04/14/23 rivaroxaban 20 mg tablet (Xarelto) 20 mg PO DAILY 10/30/22 04/14/23 metoprolol succinate 25 mg 23 mg PO DAILY 04/14/23 04/14/23 tablet,extended release 24 hr omeprazole 40 mg capsule,delayed 40 mg PO DAILY 04/14/23 04/14/23 release Allergies Allergy/AdvReac Type Severity Reaction Status Date / Time clindamycin Allergy Intermediate Rash Verified 04/14/23 19:33 codeine AdvReac Intermediate Jittery Verified 04/14/23 19:33 Penicillins AdvReac Intermediate Dizziness Verified 04/14/23 19:33 sumatriptan AdvReac Intermediate Nausea and Verified 04/14/23 19:33 Vomiting Review of Systems Review of Systems: CONSTITUTIONAL: Denies fever, chills, or sweats. EYES: Denies visual changes, redness, or discharge. ENT: Denies rhinorrhea, congestion, sore throat, or otalgia. CARDIOVASCULAR: Denies chest pain, palpitations, or edema. RESPIRATORY: Denies cough or dyspnea. GASTROINTESTINAL: Denies abdominal pain, nausea, vomiting, or diarrhea. GENITOURINARY: Denies dysuria or hematuria. SKIN: Reports of a rash to the right lower abdomen and right thigh MUSCULOSKELETAL: Denies back pain, joint pain, or myalgia. NEUROLOGIC: Denies headache, numbness, or weakness. All other systems reviewed are negative, except as documented in HPI. [facility] Past Medical History Medical History Bipolar 1 disorder DVT of upper extremity (deep vein thrombosis) GERD (gastroesophageal reflux disease) IBS (irritable bowel syndrome) Migraines Surgical History Surgical History H/O removal of thyroglossal duct cyst History of carpal tunnel repair Social History Social History Smoking status: Never smoker Living arrangements: with family Gender identity (if verbalized by the patient): Female Comments At the time of my signature, I reviewed and agree with the nursing past medical, surgical, social, and family history. There is no relevant family history pertinent to the patient complaint. Exam Narrative: GENERAL: This is a well-nourished, well-developed patient, in no apparent distress. HEAD: normocephalic, atraumatic. EYES: PERRL. Sclera clear/white. Vision is grossly intact. EARS: External ears normal NOSE: External nose normal with no obvious nasal discharge, nares without redness, no rhinorrhea. THROAT: Mucous membranes moist NECK: Neck supple SKIN: Do not raised petechiae to the right lower abdomen, 5 noted. Non raised petechiae to the left upper anterior thigh approximately 6 petechiae-no surro
== END 2023-04-14 19:41 | disposition home or self-care (01) ==
PROVIDERS: Emergency Provider Nurse Practitioner Family; PCP Family Medicine
DX: R23.3 Spontaneous ecchymoses (principal); K21.9 Gastro-esophageal reflux disease without esophagitis; Z86.711 Personal history of pulmonary embolism; F31.9 Bipolar disorder, unspecified; Z86.718 Personal history of other venous thrombosis and embolism; Z79.01 Long term (current) use of anticoagulants
CPT/HCPCS: 99211; G0463

== ENCOUNTER 2023-05-24 18:59 | Emergency (ER) | payer OTHER, SELFPAY ==
[2023-05-24 19:04] VITALS: BP 120/75; PULSE 77; RESP 18; TEMP 36.2; O2SAT 98
--- NOTE | 2023-05-24 19:30 | ED.URI ---
HPI - URI/Sore Throat General Chief Complaint: Ear Stated Complaint: Left Ear Pain Time Seen by Provider: 05/24/23 19:31 Source: patient, RN notes reviewed and old records reviewed Mode of arrival: ambulatory Limitations: no limitations History of Present Illness HPI Narrative: 43 year old female presents to [facility] care with complaints of left ear pain for one month duration after swimming in pool. Patient reports that her left ear has been increasing painful for the past 1 week, denies any drainage from ear or any pain to outside of ear. Patient denies any fevers, chills or sweats or any sinus congestion or drainage.Patient pain varies to her left ear pain increases mir she lays on her left side.She states that she has taken some Tylenol for her discomfort which patient describes as aching and at times sharp. MD elicited complaint: other (left ear pain) Onset (ago): month(s) (1 month with increased symptoms for 1 week) Pain scale (0-10): 5 Able to tolerate fluids by mouth: Yes Treatments prior to arrival: acetaminophen Related Data Home Medications Medication Instructions Recorded Confirmed bupropion HCl 150 mg 24 hr tablet, 150 mg PO BID 01/05/20 05/24/23 extended release (Wellbutrin XL) fluoxetine 40 mg capsule (Prozac) 40 mg PO DAILY 02/11/22 05/24/23 aripiprazole 2 mg tablet 2 mg PO DAILY 08/30/22 05/24/23 rivaroxaban 20 mg tablet (Xarelto) 20 mg PO DAILY 10/30/22 05/24/23 metoprolol succinate 25 mg 23 mg PO DAILY 04/14/23 05/24/23 tablet,extended release 24 hr omeprazole 40 mg capsule,delayed 40 mg PO DAILY 04/14/23 05/24/23 release cholestyramine-aspartame 4 gram 4 ea PO DAILY 05/24/23 05/24/23 oral powder for susp in a packet Allergies Allergy/AdvReac Type Severity Reaction Status Date / Time clindamycin Allergy Intermediate Rash Verified 04/14/23 19:33 Penicillins AdvReac Intermediate Dizziness Verified 04/14/23 19:33 sumatriptan AdvReac Intermediate Nausea and Verified 04/14/23 19:33 Vomiting acetaminophen AdvReac Jittery Verified 05/24/23 19:23 [From Tylenol-Codeine #3] Review of Systems Review of Systems: CONSTITUTIONAL: Denies malaise, chills, sweats, or fever. EYES: Denies visual changes, redness, or discharge. ENT: Reports no rhinorrhea, congestion, sinus pain,states left otalgia no sore throat. CARDIOVASCULAR: Denies chest pain, palpitations, or edema. RESPIRATORY: Reports no cough.? Denies dyspnea. GASTROINTESTINAL: Denies abdominal pain, nausea, vomiting, diarrhea SKIN: Denies rash or itching. MUSCULOSKELETAL: Denies myalgia. NEUROLOGIC: Denies headache. All systems reviewed & are unremarkable except as noted in HPI and below PMFSH Past Medical History Medical History Bipolar 1 disorder DVT of upper extremity (deep vein thrombosis) GERD (gastroesophageal reflux disease) IBS (irritable bowel syndrome) Migraines Surgical History Surgical History H/O removal of thyroglossal duct cyst History of carpal tunnel repair Social History Social History Smoking status: Never smoker Living arrangements: with family Gender identity (if verbalized by the patient): Female Comments At time of signature, agree with nursing past medical, surgical, social and family history. There is no relevant family history pertinent to the presenting complaint Exam Narrative: GENERAL: Well-appearing, well-nourished, and in no acute distress. HEAD: Normocephalic EYES: PERRLA, conjunctivae clear ENT: Nares clear, turbinates edematous and erythematous, clear discharge. Mucous membranes moist. TM pearly chirinos with dull light reflex bilaterally; no tragal tenderness, no drainage noted from left ear, fluid on membrane. Oropharynx erythematous without lesions. Tonsils not enlarged and without exudate, no droolin
== END 2023-05-24 19:45 | disposition home or self-care (01) ==
PROVIDERS: Emergency Provider Registered Nurse; PCP Family Medicine
DX: H69.92 Unspecified Eustachian tube disorder, left ear (principal); K21.9 Gastro-esophageal reflux disease without esophagitis; F31.9 Bipolar disorder, unspecified; Z86.718 Personal history of other venous thrombosis and embolism; Z79.01 Long term (current) use of anticoagulants
CPT/HCPCS: 99213; G0463

== ENCOUNTER 2023-06-29 18:15 | Emergency (ER) | payer OTHER, SELFPAY ==
[2023-06-29 18:20] VITALS: BP 119/84; PULSE 97; RESP 16; TEMP 36.6; O2SAT 98
[2023-06-29 18:27] VITALS: BP 119/84; PULSE 97; RESP 16; TEMP 36.6; O2SAT 98
--- NOTE | 2023-06-29 18:34 | ED.LOWEXIN ---
HPI - Extremity Injury (Lower) General Chief Complaint: Extremity Injury, Lower Stated Complaint: Right Foot Pain Source: patient and RN notes reviewed History of Present Illness HPI Narrative: 43 yo F Presents to urgent care with complaints of right foot pain x 2-3 weeks. Pt denies any injury and states it just started hurting. Pt denies any numbness or tingling. Pt does report wearing flat, soft, sandals most of the time. Pt has taken Tylenol with minimal relief. Related Data Home Medications Medication Instructions Recorded Confirmed bupropion HCl 150 mg 24 hr tablet, 150 mg PO BID 01/05/20 06/29/23 extended release (Wellbutrin XL) fluoxetine 40 mg capsule (Prozac) 40 mg PO DAILY 02/11/22 06/29/23 aripiprazole 2 mg tablet 2 mg PO DAILY 08/30/22 06/29/23 rivaroxaban 20 mg tablet (Xarelto) 20 mg PO DAILY 10/30/22 06/29/23 metoprolol succinate 25 mg 23 mg PO DAILY 04/14/23 06/29/23 tablet,extended release 24 hr omeprazole 40 mg capsule,delayed 40 mg PO DAILY 04/14/23 06/29/23 release cholestyramine-aspartame 4 gram 4 ea PO DAILY 05/24/23 06/29/23 oral powder for susp in a packet Allergies Allergy/AdvReac Type Severity Reaction Status Date / Time clindamycin Allergy Intermediate Rash Verified 06/29/23 18:25 Penicillins AdvReac Intermediate Dizziness Verified 06/29/23 18:25 sumatriptan AdvReac Intermediate Nausea and Verified 06/29/23 18:25 Vomiting acetaminophen AdvReac Jittery Verified 06/29/23 18:25 [From Tylenol-Codeine #3] Review of Systems Review of Systems: CONSTITUTIONAL: Denies fever, chills, or sweats. EYES: Denies visual changes, redness, or discharge. ENT: Denies otalgia and sore throat CARDIOVASCULAR: Denies chest pain, palpitations, or edema. RESPIRATORY: Denies cough or dyspnea. GASTROINTESTINAL: Denies abdominal pain, nausea, vomiting, or diarrhea. GENITOURINARY: Denies dysuria or hematuria. SKIN: Denies rash or itching. MUSCULOSKELETAL: right foot pain, laterally and medially, at the MTP joints NEUROLOGIC: Denies headache, numbness, or weakness. Pertinent positives per HPI. [facility] Past Medical History Medical History Bipolar 1 disorder DVT of upper extremity (deep vein thrombosis) GERD (gastroesophageal reflux disease) IBS (irritable bowel syndrome) Migraines Surgical History Surgical History H/O removal of thyroglossal duct cyst History of carpal tunnel repair Social History Social History Smoking status: Never smoker Living arrangements: with family Gender identity (if verbalized by the patient): Female Comments At the time of my signature, I reviewed and agree with the nursing past medical, surgical, social, and family history. There is no relevant family history pertinent to the patient complaint. Exam Narrative: GENERAL: This is a well-nourished, well-developed patient, in no apparent distress. HEAD: normocephalic, atraumatic. EYES: Sclera clear/white. Vision is grossly intact. EARS: External ears normal, auditory canals clear and without drainage. Hearing grossly intact. NOSE: External nose normal with no obvious nasal discharge, nares without redness, no rhinorrhea. THROAT: Mucous membranes moist, posterior pharynx clear. NECK: Neck supple, non-tender without lymphadenopathy, masses or thyromegaly. CARDIOVASCULAR: Regular rate and rhythm without murmurs, gallops, or rubs. RESPIRATORY: Clear to auscultation. Breath sounds equal bilaterally. No wheezes, rales, or rhonchi. SKIN: warm, intact with no suspicious lesions or rash, good texture and turgor. NEURO: awake, alert, and oriented to person, place and time. There were no obvious focal neurologic abnormalities. EXTREMITIES: No clubbing, cyanosis, or edema. No joint tenderness, effusion, or edema noted. BACK: Nontender without def
== END 2023-06-29 18:40 | disposition home or self-care (01) ==
PROVIDERS: Emergency Provider Nurse Practitioner Family; PCP Family Medicine
DX: M25.571 Pain in right ankle and joints of right foot (principal); K21.9 Gastro-esophageal reflux disease without esophagitis; Z86.718 Personal history of other venous thrombosis and embolism; F31.9 Bipolar disorder, unspecified; Z79.01 Long term (current) use of anticoagulants
CPT/HCPCS: 99213; G0463

== ENCOUNTER 2023-09-18 15:14 | Emergency (ER) | payer OTHER, SELFPAY ==
--- NOTE | 2023-09-18 15:16 | ED.UPPEXIN ---
HPI - Extremity Injury (Upper) General Chief Complaint: Extremity Injury, Upper Stated Complaint: Left elbow to shoulder injury Time Seen by Provider: 09/18/23 15:16 Source: patient Mode of arrival: ambulatory Limitations: no limitations History of Present Illness HPI narrative: Pham is a 43-year-old female patient presenting to the clinic today with complaints of left elbow pain is radiating up into her shoulder. She reports no known injury. States she does have a history of carpal tunnel on this arm. Reports that they are discharged burning pain in her left lateral elbow that is radiating up into her shoulder. Related Data Home Medications Medication Instructions Recorded Confirmed bupropion HCl 150 mg 24 hr tablet, 150 mg PO BID 01/05/20 09/18/23 extended release (Wellbutrin XL) fluoxetine 40 mg capsule (Prozac) 40 mg PO DAILY 02/11/22 09/18/23 aripiprazole 2 mg tablet 2 mg PO DAILY 08/30/22 09/18/23 rivaroxaban 20 mg tablet (Xarelto) 20 mg PO DAILY 10/30/22 09/18/23 metoprolol succinate 25 mg 23 mg PO DAILY 04/14/23 09/18/23 tablet,extended release 24 hr omeprazole 40 mg capsule,delayed 40 mg PO DAILY 04/14/23 09/18/23 release cholestyramine-aspartame 4 gram 4 ea PO DAILY 05/24/23 09/18/23 oral powder for susp in a packet Allergies Allergy/AdvReac Type Severity Reaction Status Date / Time clindamycin Allergy Intermediate Rash Verified 09/18/23 15:28 Penicillins AdvReac Intermediate Dizziness Verified 09/18/23 15:28 sumatriptan AdvReac Intermediate Nausea and Verified 09/18/23 15:28 Vomiting acetaminophen AdvReac Jittery Verified 09/18/23 15:28 [From Tylenol-Codeine #3] Review of Systems Review of Systems: Pertinent positives per HPI. Patient denies any fever, chills, rash, headache, visual changes, dizziness, cough, runny nose, sore throat, shortness of breath, chest pain, palpitations, nausea, vomiting, diarrhea, constipation, abdominal pain, or any urinary issues. [facility] Past Medical History Medical History Bipolar 1 disorder DVT of upper extremity (deep vein thrombosis) GERD (gastroesophageal reflux disease) IBS (irritable bowel syndrome) Migraines Surgical History Surgical History H/O removal of thyroglossal duct cyst History of carpal tunnel repair Social History Social History Smoking status: Never smoker Living arrangements: with family Gender identity (if verbalized by the patient): Female Comments At the time of my signature, I reviewed and agree with the nursing past medical, surgical, social, and family history. There is no relevant family history pertinent to the patient complaint. Exam Narrative: General: Well-developed, well nourished, in no apparent distress Head: Normocephalic, atraumatic. Cardio: Regular rate and rhythm, s1 and s2 normal, no murmur appreciated. Resp: Clear to auscultation bilaterally, no rhonchi, rales, wheezing or rubs. Musculoskeletal: No deformity,tender to palpation over the lateral epicondylitis, positive Tinel's over the lateral epicondylitis, grossly normal range of motion, muscle strength strong and equal, peripheral pulse strong, no edema, no cyanosis, normal gait and station Course Course Emergency Course: Portions of this record may have been created with voice recognition software. Level of Care: Express Care Visit Vital Signs Vital signs: Vital signs reviewed MDM - Extremity Injury (Upper) MDM Narrative Medical decision making narrative: At the time of visit patient is resting comfortably on the exam table. I suspect patient has lateral epicondylitis. Prescription for a Medrol Dosepak was sent to the pharmacy and supportive measures were discussed with the patient she voiced understanding discharge instructions and agrees to treatment pl
[2023-09-18 15:20] VITALS: BP 137/77; PULSE 91; RESP 16; TEMP 36; O2SAT 97
== END 2023-09-18 15:34 | disposition home or self-care (01) ==
PROVIDERS: Emergency Provider Nurse Practitioner Family; PCP Family Medicine
DX: M77.12 Lateral epicondylitis, left elbow (principal); K21.9 Gastro-esophageal reflux disease without esophagitis; Z86.718 Personal history of other venous thrombosis and embolism; Z79.01 Long term (current) use of anticoagulants
CPT/HCPCS: 99213; G0463

== ENCOUNTER 2024-03-29 14:58 | Emergency (ER) | payer OTHER, SELFPAY ==
[2024-03-29 15:04] VITALS: BP 124/87; PULSE 87; RESP 16; TEMP 36.6; O2SAT 98
--- NOTE | 2024-03-29 15:33 | ED.URI ---
HPI - URI/Sore Throat General Chief Complaint: Upper Respiratory Infection Stated Complaint: throat/cough/ear Time Seen by Provider: 03/29/24 15:33 Source: patient, RN notes reviewed and old records reviewed Mode of arrival: ambulatory Limitations: no limitations History of Present Illness HPI Narrative: 44 year old female with complaints of sore throat, ear pain and cough and sinus pressure for the past 3 days. Patient reports that she has had positive exposure to strep throat. Patient reports tht she has not taken any Tylenol or any ibuprofen for her discomfort, she has taken some OTC cough syrup for her cough. Patient reports that she has not had any known fevers, has felt sweaty at times. MD elicited complaint: cough, sore throat and sinus pain (pressure and ear aches) Onset (ago): day(s) (3) Severity: moderate Treatments prior to arrival: other (cough syrup) Related Data Home Medications Medication Instructions Recorded Confirmed bupropion HCl 150 mg 24 hr tablet, 150 mg PO BID 01/05/20 09/18/23 extended release (Wellbutrin XL) fluoxetine 40 mg capsule (Prozac) 40 mg PO DAILY 02/11/22 09/18/23 aripiprazole 2 mg tablet 2 mg PO DAILY 08/30/22 09/18/23 rivaroxaban 20 mg tablet (Xarelto) 20 mg PO DAILY 10/30/22 09/18/23 metoprolol succinate 25 mg 23 mg PO DAILY 04/14/23 09/18/23 tablet,extended release 24 hr omeprazole 40 mg capsule,delayed 40 mg PO DAILY 04/14/23 09/18/23 release cholestyramine-aspartame 4 gram 4 ea PO DAILY 05/24/23 09/18/23 oral powder for susp in a packet Allergies Allergy/AdvReac Type Severity Reaction Status Date / Time clindamycin Allergy Intermediate Rash Verified 09/18/23 15:28 Penicillins AdvReac Intermediate Dizziness Verified 09/18/23 15:28 sumatriptan AdvReac Intermediate Nausea and Verified 09/18/23 15:28 Vomiting acetaminophen AdvReac Jittery Verified 09/18/23 15:28 [From Tylenol-Codeine #3] Review of Systems Review of Systems: CONSTITUTIONAL: Reports malaise, chills, positive for sweats, unknown if fevers. EYES: Denies visual changes, redness, or discharge. ENT: Reports rhinorrhea, congestion, sinus pain, otalgia and sore throat. CARDIOVASCULAR: Denies chest pain, palpitations, or edema. RESPIRATORY: Reports cough.? Denies dyspnea. GASTROINTESTINAL: Denies abdominal pain, nausea, vomiting, diarrhea SKIN: Denies rash or itching. MUSCULOSKELETAL: Denies myalgia. NEUROLOGIC: Denies headache. All systems reviewed & are unremarkable except as noted in HPI and below PMFSH Past Medical History Medical History Bipolar 1 disorder DVT of upper extremity (deep vein thrombosis) GERD (gastroesophageal reflux disease) IBS (irritable bowel syndrome) Migraines Surgical History Surgical History H/O removal of thyroglossal duct cyst History of carpal tunnel repair Social History Social History Smoking status: Never smoker Living arrangements: with family Gender identity (if verbalized by the patient): Female Comments At time of signature, agree with nursing past medical, surgical, social and family history. There is no relevant family history pertinent to the presenting complaint Exam Narrative: GENERAL: Well-appearing, well-nourished, and in no acute distress. HEAD: Normocephalic EYES: PERRLA, conjunctivae clear ENT: Nares clear, turbinates edematous and erythematous, clear discharge. Mucous membranes moist. TM pearly chirinos with dull light reflex bilaterally; no tragal tenderness. Oropharynx erythematous without lesions. Tonsils red enlarged and without exudate, no drooling, no hoarseness, no trismus, uvula midline. NECK: Supple. lymphadenopathy CHEST: Clear to auscultation, breath sounds equal. No wheezing, rhonchi, rales, or stridor. No respiratory distress, speaks
== END 2024-03-29 15:46 | disposition home or self-care (01) ==
PROVIDERS: Emergency Provider Registered Nurse; PCP Family Medicine
DX: J02.0 Streptococcal pharyngitis (principal); K21.9 Gastro-esophageal reflux disease without esophagitis; Z86.718 Personal history of other venous thrombosis and embolism
CPT/HCPCS: 99213; G0463

== ENCOUNTER 2025-04-30 17:32 | Emergency (ER) | payer OTHER, SELFPAY ==
--- NOTE | ~2025-04-30 | XR_ITS ---
EXAM: [id number] DATE: 04/30/2025 18:31 HISTORY: neck pain . COMPARISON: None available. FINDINGS: Osteopenia. Craniocervical association and atlantoaxial joint are aligned. Mild degenerati ve change at the atlantodental interval. No prevertebral soft tissue swelling. Reversal of the normal cervical lordosis centered at C2-3. Vertebral body heights are maintained. Mild disc space narrowing and marginal osteophytosis in the mid and lower cervical spine. Normal facets and posterior elements . IMPRESSION: No acute fracture or traumatic malalignment detected in the cervical spine. Mild degenera tive changes, as described above. Reviewed, dictated and finalized at location K. IMPRESSION: No acute fracture or traumatic malalignment detected in the cervica l spine. Mild degenerative changes, as described above.
--- NOTE | ~2025-04-30 | XR_ITS ---
EXAM: XR shoulder RT min 2V DATE: 04/30/2025 18:31 HISTORY: right shoulder pain . COMPARISON: . FINDINGS: Normal mineralization. No fracture or dislocation. No lytic or blastic lesion. AC joint wi dening and mild degenerative change. Glenohumeral joint is maintained. No erosion or periosteal multani e. Soft tissues within normal limits. IMPRESSION: AC joint widening as can be seen with acute or chronic low-grade AC joint injury. Reviewed, dictated and finalized at location K.
[2025-04-30 17:42] VITALS: BP 112/70; PULSE 86; RESP 20; TEMP 36.7; O2SAT 98
--- NOTE | 2025-04-30 18:05 | ED_ITS ---
HPI - Extremity Problem General Chief complaint: Extremity Problem,Nontraumatic Stated complaint: back/shoulder pain Source: patient and family Mode of arrival: ambulatory Limitations: no limitations History of Present Illness HPI Narrative: Patient presents for evaluation of pain in the right upper arm that shoots into her neck for the last 4 days. No identified precipitating cause or injury. She describes the pain as shooting and like a pullled muscle. She rates her pain 8/10 in severity. She reports some numbness in her posterior neck. She states she thinks she is right-handed but she is not certain. She has tried tylenol and ibuprofen for her symptoms. She is currently on Xarelto for DVT. She states she had a bone spur surgically removed from her right shoulder a few months ago and is currently undergoing physical therapy. Related Data Home Medications ?Medication ?Instructions ?Recorded ?Confirmed ?Last Taken ?Type bupropion HCl 150 mg 24 hr tablet, 150 mg PO BID 01/05/20 09/18/23 Unknown History extended release (Wellbutrin XL) fluoxetine 40 mg capsule (Prozac) 40 mg PO DAILY 02/11/22 09/18/23 Unknown Histo ry rivaroxaban 20 mg tablet (Xarelto) 20 mg PO DAILY 10/30/22 09/18/23 Unknown History metoprolol succinate 25 mg 23 mg PO DAILY 04/14/23 09/18/23 Unknown History tablet,extended release 24 hr omeprazole 40 mg capsule,delayed 40 mg PO DAILY 04/14/23 09/18/23 Unknown History release buspirone .ROUTE 04/30/25 Unknown History oxybutynin chloride 5 mg tablet mg 04/30/25 Unknown History Allergies Allergy/AdvReac Type Severity Reaction Status Date / Time clindamycin Allergy Intermediate Rash Verified 09/18/23 15:28 codeine Allergy Unknown Unknown Verified 04/30/25 18:11 Penicillins AdvReac Intermediate Dizziness Verified 09/18/23 15:28 sumatriptan AdvReac Intermediate Nausea and Verified 09/18/23 15:28 Vomiting acetaminophen (From AdvReac Jittery Verified 09/18/23 15:28 Tylenol-Codeine #3) Review of Systems Review of Systems: CONSTITUTIONAL: Denies fever, chills, or sweats. EYES: Denies visual changes, redness, or discharge. ENT: Denies rhinorrhea, congestion, sore throat, or otalgia. CARDIOVASCULAR: Denies chest pain, palpitations, or edema. RESPIRATORY: Denies cough or dyspnea. GASTROINTESTINAL: Denies abdominal pain, nausea, vomiting, or diarrhea. GENITOURINARY: Denies dysuria or hematuria. SKIN: Denies rash or itching. MUSCULOSKELETAL: Reports neck pain and right shoulder pain. NEUROLOGIC: Reports numbness in the posterior aspect of the. Denies headache, dizziness, or weakness. PSYCHIATRIC: Denies anxiety or depression. COUNT INCLUDES THE [facility] Past Medical History Medical History DVT of upper extremity (deep vein thrombosis) Bipolar 1 disorder GERD (gastroesophageal reflux disease) IBS (irritable bowel syndrome) Migraines Surgical History Surgical History History of carpal tunnel repair H/O removal of thyroglossal duct cyst Family History Family History Mother Family history unknown Social History Social History Smoking status: Never smoker Substance use: never Living arrangements: with family Gender identity (if verbalized by the patient): Female Spiritual care concerns: No Exam Narrative: GENERAL: Well-appearing, well-nourished, and in no acute distress. HEAD: Normocephalic, atraumatic. EYES: PERRLA and EOMI. ENT: Nares clear, no rhinorrhea or epistaxis. Mucous membranes moist. Oropharynx without tonsillar hypertrophy exudate or other lesions. Bilateral TMs pearly chirinos nonbulging NECK: Supple. No adenopathy or masses. No carotid bruits or JVD. There is tenderness diffusely in the posterior neck and in the lateral musculature of the neck bilaterally CHEST: Clear to auscultation. No respiratory distress. No wheezes rales or rhonchi HEART: Regular rate and rhythm. No murmur heard. Normal peripheral pulses. ABDOMEN: Soft, nontender, nondistended, normal active bowel sounds. EXTREMITIES: There is tenderness in the right shoulder. Normal range of motion. No edema. No crepitus or deformity SKIN: Warm, dry, no rash. NEURO: No focal deficits. Alert and oriented x3. PSYCH: Normal mood and affect. Course Course Emergency Course: This is a 45-year-old female who presented for evaluation of right shoulder pain. X-ray of the neck showed degenerative changes. X-ray of the right shoulder showed AC joint widening. May be related to physical therapy following her recent shoulder surgery. She is provided with a sling. Will be discharged with tramadol. Follow up with her Orthopedic, Dr. Escobar. Go to the emergency department for worsening symptoms. Patient in agreement with plan of care. Level of Care: Express Care Visit Vital Signs Vital signs: Vital Signs Temperature 36.7 C 04/30/25 17:42 Pulse Rate 86 04/30/25 17:42 Respiratory Rate 20 04/30/25 17:42 Blood Pressure 112/70 04/30/25 17:42 Pulse Oximetry 98 04/30/25 17:42 Oxygen Delivery Room Air 04/30/25 17:42 Temperature 36.7 C 04/30/25 17:42 Pulse Rate 86 04/30/25 17:42 Respiratory Rate 20 04/30/25 17:42 Blood Pressure 112/70 04/30/25 17:42 Pulse Oximetry 98 04/30/25 17:42 Oxygen Delivery Room Air 04/30/25 17:42 MDM - Extremity (Nontraumatic) Imaging Data Radiologist's impression: EXAM: XR shoulder RT min 2V DATE: 04/30/2025 18:31 HISTORY: right shoulder pain . COMPARISON: . FINDINGS: Normal mineralization. No fracture or dislocation. No lytic or blastic lesion. AC joint widening and mild degenerative change. Glenohumeral joint is maintained. No erosion or periosteal change. Soft tissues within normal limits. IMPRESSION: AC joint widening as can be seen with acute or chronic low-grade AC joint injury. EXAM: [id number] DATE: 04/30/2025 18:31 HISTORY: neck pain . COMPARISON: None available. FINDINGS: Osteopenia. Craniocervical association and atlantoaxial joint are aligned. Mild degenerative change at the atlantodental interval. No prevertebral soft tissue swelling. Reversal of the normal cervical lordosis centered at C2-3. Vertebral body heights are maintained. Mild disc space narrowing and marginal osteophytosis in the mid and lower cervical spine. Normal facets and posterior elements. IMPRESSION: No acute fracture or traumatic malalignment detected in the cervical spine. Mild degenerative changes, as described above. Discharge Plan Discharge Clinical Impression: Acromioclavicular joint injury Patient Disposition: Home Condition: Stable Instructions: Antibiotic Form, Shoulder Pain (ED) Additional Instructions: PLEASE WEAR YOUR SLING PLEASE CALL DR. ESCOBAR FOR AN APPOINTMENT TOMORROW Patient Language: Turkmen Prescriptions: New tramadol 50 mg tablet 50 mg PO Q8H PRN (Reason: pain) Qty: 15 0RF No Action fluoxetine [Prozac] 40 mg Capsule 40 mg PO DAILY Xarelto 20 mg tablet 20 mg PO DAILY bupropion HCl [Wellbutrin XL] 150 mg Tablet Extended Release 24 Hr 150 mg PO BID omeprazole 40 mg capsule,delayed release(DR/EC) 40 mg PO DAILY metoprolol succinate 25 mg tablet extended release 24 hr 23 mg PO DAILY buspirone [BuSpar] .ROUTE oxybutynin chloride 5 mg tablet Follow-up/Referrals: Luz,Mack Palomino MD [Non-Staff] - Hearn,Stephen Cavazos MD [Primary Care Provider] - Time of Disposition: 19:06
== END 2025-04-30 19:12 | disposition home or self-care (01) ==
PROVIDERS: Emergency Provider Nurse Practitioner; PCP Family Medicine
DX: S49.91XA Unspecified injury of right shoulder and upper arm, initial encounter (principal); X58.XXXA Exposure to other specified factors, initial encounter; Z86.718 Personal history of other venous thrombosis and embolism; Z79.01 Long term (current) use of anticoagulants; K21.9 Gastro-esophageal reflux disease without esophagitis
CPT/HCPCS: 72040; 73030; 99214; A4565; G0463

== ENCOUNTER 2025-07-27 17:00 | Emergency (ER) | payer OTHER, SELFPAY ==
--- NOTE | ~2025-07-27 | XR_ITS ---
XR knee RT min 4V 07/27/2025 18:03 INDICATION: Right knee pain PROCEDURE: 5 views right knee COMPARISON: No prior studies for comparison. FINDINGS: Fracture, dislocation or subluxation is not identified. No significant joint effusion. The soft tissues appear within normal limits. No foreign bodies are identified. IMPRESSION: 1: NO ACUTE BONE OR JOINT ABNORMALITY IDENTIFIED. Reviewed, dictated and finalized at location O.
[2025-07-27 17:14] VITALS: BP 139/79; PULSE 86; RESP 20; TEMP 36.7; O2SAT 98
--- NOTE | 2025-07-27 17:43 | ED.GENADULT ---
HPI - General Adult General Chief complaint: Extremity Injury, Lower Stated complaint: right knee pain Time Seen by Provider: 07/27/25 17:30 Source: patient, RN notes reviewed and old records reviewed Mode of arrival: ambulatory Limitations: no limitations History of Present Illness HPI narrative: 45 year old female accompanied by spouse with complaints of pain to her right anterior knee since yesterday. Patient reports that dog was playing running around and ran its head right into the anterior aspect of her right knee yesterday. Patient reports that she is on blood thinner and she does have bruising noted to her anterior knee. Patient is able to walk on her knee states some pain with bending of her knee She last took Tylenol this morning and reports that she has used ice to her right knee. MD complaint: knee pain Onset (ago): day(s) (day 2 of symptoms) Location: right and lower extremity (knee non radiating) Severity scale (1-10): 8 Quality: other (throbbing) Treatments prior to arrival: other (Tylenol) Related Data Home Medications ?Medication ?Instructions ?Recorded ?Confirmed ?Last Taken ?Type bupropion HCl 150 mg 24 hr tablet, 150 mg PO BID 01/05/20 09/18/23 Unknown History extended release (Wellbutrin XL) fluoxetine 40 mg capsule (Prozac) 40 mg PO DAILY 02/11/22 09/18/23 Unknown History rivaroxaban 20 mg tablet (Xarelto) 20 mg PO DAILY 10/30/22 09/18/23 Unknown History metoprolol succinate 25 mg 23 mg PO DAILY 04/14/23 09/18/23 Unknown History tablet,extended release 24 hr omeprazole 40 mg capsule,delayed 40 mg PO DAILY 04/14/23 09/18/23 Unknown History release buspirone .ROUTE 04/30/25 Unknown History oxybutynin chloride 5 mg tablet mg 04/30/25 Unknown History aripiprazole 5 mg tablet mg 07/27/25 Unknown History hydroxyzine pamoate 25 mg capsule mg 07/27/25 Unknown History prazosin 1 mg capsule mg 07/27/25 Unknown History Allergies Allergy/AdvReac Type Severity Reaction Status Date / Time clindamycin Allergy Intermediate Rash Verified 07/27/25 17:03 codeine Allergy Unknown Unknown Verified 07/27/25 17:03 Penicillins AdvReac Intermediate Dizziness Verified 07/27/25 17:03 sumatriptan AdvReac Intermediate Nausea and Verified 07/27/25 17:03 Vomiting acetaminophen (From AdvReac Jittery Verified 07/27/25 17:03 Tylenol-Codeine #3) Review of Systems Review of Systems: CONSTITUTIONAL: Denies fever, chills, or sweats. EYES: Denies visual changes, redness, or discharge. ENT: Denies rhinorrhea, congestion, sore throat, or otalgia. CARDIOVASCULAR: Denies chest pain, palpitations, or edema. RESPIRATORY: Denies cough or dyspnea. GASTROINTESTINAL: Denies abdominal pain, nausea, vomiting, or diarrhea. GENITOURINARY: Denies dysuria or hematuria. SKIN: Denies rash or itching. MUSCULOSKELETAL: Denies back pain,positive for right anterior knee pain after dog ran into the anterior aspect of knee, or myalgia. NEUROLOGIC: Denies headache, numbness, or weakness. PSYCHIATRIC: Positive for history of anxiety or depression. All systems reviewed & are unremarkable except as noted in HPI and below PMFSH Past Medical History Medical History DVT of upper extremity (deep vein thrombosis) Bipolar 1 disorder GERD (gastroesophageal reflux disease) IBS (irritable bowel syndrome) Migraines Surgical History Surgical History History of carpal tunnel repair H/O removal of thyroglossal duct cyst Family History Family History Mother Family history unknown Social History Social History Smoking status: Never smoker Substance use: never Living arrangements: with family Gender identity (if verbalized by the patient): Female Spiritual care concerns: No Comments At time of signature, agree with nursing past medical, surgical, social and family history. There is no relevant family history pertinent to the presenting complaint Exam Narrative: GENERAL: Well-appearing, well-nourished, and in no acute distress. HEAD: Normocephalic, atraumatic. EYES: PERRLA and EOMI. ENT: Nares clear, no rhinorrhea or epistaxis. Mucous membranes moist. NECK: Supple.no lymphadenopathy CHEST: Clear to auscultation. No respiratory distress. SAO2 98% on room air HEART: Regular rate and rhythm. No murmur heard. Normal peripheral pulses. ABDOMEN: Soft, nontender, nondistended, normal active bowel sounds. EXTREMITIES: Normal range of motion. No acute edema. reports pain to the anterior aspect of her right knee especially with movement of knee and ambulation, no acute swelling noted to anterior knee minimal bruising noted to anterior knee, patient does have full mobility of her right knee sensation and circulation is intact to right leg SKIN: Warm, dry, no rash. NEURO: No focal deficits. Alert and oriented x3. Course Course Emergency Course: Patient is aware of diagnosis, understands and agrees to treatment plan.? Anticipatory guidance given.? Patient agrees to follow-up as directed and is aware of reasons to seek care at the emergency department. Portions of this record may have been created with voice recognition software Level of Care: Express Care Visit Vital Signs Vital signs: Vital Signs Temperature 36.7 C 07/27/25 17:14 Pulse Rate 86 07/27/25 17:14 Respiratory Rate 07/27/25 17:14 Blood Pressure 139/79 07/27/25 17:14 Pulse Oximetry 98 07/27/25 17:14 Oxygen Delivery Room Air 07/27/25 17:14 Temperature 36.7 C 07/27/25 17:14 Pulse Rate 86 07/27/25 17:14 Respiratory Rate 07/27/25 17:14 Blood Pressure 139/79 07/27/25 17:14 Pulse Oximetry 98 07/27/25 17:14 Oxygen Delivery Room Air 07/27/25 17:14 Reviewed Medical Decision Making MDM Narrative Medical decision making narrative: Exam findings and imaging show no acute concerns or changes; patient is non-toxic appearing and is in no distress.? Patient is appropriate for outpatient treatment and follow-up Differential Diagnosis Differential Diagnosis: contusion to right knee, pain to right knee, bruising of anterior knee, injury right anterior knee Medical Records Medical records reviewed: Yes I reviewed the external patient's medical records. Vital Signs Vital Signs: Vital Signs Temperature 36.7 C 07/27/25 17:14 Pulse Rate 86 07/27/25 17:14 Respiratory Rate 20 07/27/25 17:14 Blood Pressure 139/79 07/27/25 17:14 Pulse Oximetry 98 07/27/25 17:14 Oxygen Delivery Room Air 07/27/25 17:14 Temperature 36.7 C 07/27/25 17:14 Pulse Rate 86 07/27/25 17:14 Respiratory Rate 20 07/27/25 17:14 Blood Pressure 139/79 07/27/25 17:14 Pulse Oximetry 98 07/27/25 17:14 Oxygen Delivery Room Air 07/27/25 17:14 reviewed Imaging Data Attestation: I personally reviewed and interpreted this imaging study as follows: My impression: no acute bone or joint abnormality Radiologist's impression: [facility] [address] [place] [address] XRay Report Signed Patient: Pham Flores : 1980 MR#: [id number] Age: 45 Acct:[id number] Loc: [facility] ADM Date: 07/27/25Attending Dr: Ordering Physician: Eleni Rodrigez APRN Date of Service: 07/27/25 Procedure(s): XR knee RT min 4V Accession Number(s): [id number] cc: Eleni Rodrigez APRN; Dhiraj, Stephen Cavazos MD~ XR knee RT min 4V 07/27/2025 18:03 INDICATION: Right knee pain PROCEDURE: 5 views right knee COMPARISON: No prior studies for comparison. FINDINGS: Fracture, dislocation or subluxation is not identified. No significant joint effusion. The soft tissues appear within normal limits. No foreign bodies are identified. IMPRESSION: 1: NO ACUTE BONE OR JOINT ABNORMALITY IDENTIFIED. Reviewed, dictated and finalized at location O. Please be advised this is a medical document. It is intended for [id number] communication. It is written in medical language and may contain unfamiliar abbreviations or verbiage. Medical documents are intended to carry relevant information, facts as evident, and the clinical opinion of the practitioner at the time of the encounter. This report may have been done utilizing a voice recognition system. Attempts have been made to correct errors. However, there may be uncorrected grammatical, spelling, and recognition errors present. The file time of this note does not necessarily represent the time of service. Dictated By: Marky Talley MD 07/27/25 1800 Signed By: <Electronically signed by Marky Talley MD in OV> Critical Care Time Critical Care Time Critical Care Time: No Discharge Plan Discharge Clinical Impression: Right knee pain Qualifiers: Chronicity: acute Qualified Code(s): M25.561 - Pain in right knee Patient Disposition: Home Condition: Stable Instructions: Antibiotic Form, Knee Pain (ED) Additional Instructions: Tylenol for pain at doses per bottle instructions Follow-up with orthopedic surgeon if any continued problems Follow-up with PCP if further problems or concerns Ice to the area 20-30 minutes 4-6 times a day Elevate above heart If your symptoms persist, change or worsen significantly before you can contact your personal physician then please, without delay, go to the emergency department for further evaluation. Follow-up with PCP in 7-10 days or sooner if needed Follow up with PCP soon in regards to your blood pressure which is elevated above threshold for referral. Blood pressure above 120/80 may indicate pre-hypertension. 139/79 Patient Language: Sami Prescriptions: No Action fluoxetine [Prozac] 40 mg Capsule 40 mg PO DAILY Xarelto 20 mg tablet 20 mg PO DAILY bupropion HCl [Wellbutrin XL] 150 mg Tablet Extended Release 24 Hr 150 mg PO BID omeprazole 40 mg capsule,delayed release(DR/EC) 40 mg PO DAILY metoprolol succinate 25 mg tablet extended release 24 hr 23 mg PO DAILY buspirone [BuSpar] .ROUTE oxybutynin chloride 5 mg tablet tramadol 50 mg tablet 50 mg PO Q8H PRN (Reason: pain) Qty: 15 0RF prazosin 1 mg capsule hydroxyzine pamoate 25 mg capsule aripiprazole 5 mg tablet Follow-up/Referrals: Dhiraj,Stephen Cavazos MD [Primary Care Provider] Time of Disposition: 18:21 Quality Phelps Coma Scale Eyes: Open Verbal: Oriented and Alert Motor: Follows Commands Phelps Coma Total Score: 15
--- OUTSIDE RECORDS SUMMARY | 2025-07-27 17:46 | XMS_ITS | Encounter Summary ---
Author Organization [facility] Address [address] [place] [address] Phone Care Team Providers Care Engineer Sergeant Name Role Phone Hema Ochoa MD Unavailable Stephen Hearn MD Primary Care Provider Fahad Glover Unavailable Mat Encinas MD Unavailable Caridad Padilla APRN, CNP Unavailable Ge Keen MD Unavailable [phone] Reason for Visit * Reason Comments Medication Refill Encounter Details Date Type Department Care Team (Late st Contact Info) Description 10/23/2023 Refill [facility] - Gastroenter[facility] [address] [place] [address] Ge Keen MD [address] [place] [address] Medication Refill Social History Tobacco Use Types Packs/Day Years Used Date Smoking Tobacco: Never Smokeless Tobacco: Never Alcohol Use Standard Drinks/Week Comments No 0 (1 standard drink = 0.6 oz pur e alcohol) Sexually Active Control Partners Comments Not Currently Male Comments No Sex and Gender Information Value Date Recorded Sex Assigned at Female 06/15/2023 6:13 PM CDT Legal Sex Female 7:47 PM CDT Gender Identity Female 06/15/2023 6:13 PM CDT Sexual Orientation Not on file documented as of this encounter Miscellaneous Notes * Telephone Encounter - Ronel Murillo RN - 10/27/2023 10:38 AM SENIOR C WEB DEVELOPER Spoke with patient, she states she is requesting a refill of the colestipol tablets. She states thecholestyramine packets make her sick. Colestipol order pended, please review and approve if appropriate. OR C WEB DEVELOPER * Telephone Encounter - Ronel Murillo RN - 10/27/2023 9:00 AM SENIOR C WEB DEVELOPER Called patient. Left message for patient to call back. OR C WEB DEVELOPER * Telephone Encounter - Ronel Murillo RN - 10/27/2023 8:59 AM SENIOR C WEB DEVELOPER Images from the original note were not included. Requested Renewals Name from pharmacy: COLESTIPOL HCL 1 GM TABLET Will file in chart as: colestipol (COLESTID) 1 GM Tablet The original prescription was discontinued on 09/21/2023 by Caridad Padilla APRN, ENVIRONMENTAL WEB CRAWLER for the following reason: Alternate therapy. Renewing this prescription may not be appropriate. Sig: TAKE 1 TABLET BY MOUTH EVERY DAY Disp: 30 Tablet ? Refills: 2 Start: 10/23/2023 Class: E Prescribe For: Irritable bowel syndrome with diarrhea Last ordered: 4 months ago (06/01/2023) by Ge Keen MD Last refill: 09/18/2023 Rx #: [id number] OR C WEB DEVELOPER documented in this encounter Plan of Treatment Not on file documented as of this encounter Visit Diagnoses Diagnosis Irritable bowel syndrome with diarrhea Irritable bowel syndrome documented in this encounter Additional Health Concerns Infection Onset Date Last Indicated Resolved Time COVID - 19 10/17/2023 10/17/2023 10/27/2023 12:1 6 AM SENIOR C WEB DEVELOPER COVID - 19 01/05/2025 01/05/2025 01/05/2025 9:48 AM SENIOR C WEB DEVELOPER documented as of this encounter Care Teams Engineer Sergeant Relationship Specialty Start Date End Date Stephen Hearn MD [address] [place] [address] [place] [address] PCP - General Family Medicine 06/15/20 Hema Ochoa MD Gastroenterology 04/28/16 Fahad Glover [address] [facility] [address] [place] [address] 06/13/21 Mat Encinas MD [address] [address] Consulting Physician Colon and Rectal Surgery 09/09/23 Caridad Padilla APRN, ENVIRONMENTAL WEB CRAWLER [address] [place] [address] Nurse Practitioner Advanced Practice Nurse 08/21/23 Ge Keen MD [address] [place] [address] Consulting Physician Gastroenterology 01/01/23 documented as of this encounter
--- OUTSIDE RECORDS SUMMARY | 2025-07-27 17:46 | XMS_ITS | Encounter Summary ---
Author Organization [facility] Address [address] [place] [place] [address] Phone Care Team Providers Care Pin Machine Tender Name Role Phone eHma Ochoa MD Unavailable Stephen Hearn MD Primary Care Provider [phone] Fahad Glover Unavailable Mat Encinas MD Unavailable Caridad Padilla APRN, LAST SORTER Unavailable Ge Keen MD Unavailable [phone] Reason for Visit * Reason Comments Medication Refill Encounter Details Date Type Department Care Team (Late st Contact Info) Description 07/20/2025 Refill [facility] - Gastroenterology [facility] [address] [place] [id number] Caridad Padilla APRN, LAST SORTER [address] [place] [address] Medication Refill Social History Tobacco Use Types Packs/Day Years Used Date Smoking Tobacco: Never Smokeless Tobacco: Never Alcohol Use Standard Drinks/Week Comments No 0 (1 standard drink = 0.6 oz pur e alcohol) [facility] Utilities Answer Date Recorded In the past 12 months has [employer], gas, oil, or water [employer] threatened to shut off services in your home? No 02/06/2024 Social Connection and Isolation Panel Answer Date Recorded In a typical week, how many times do you talk on the phone with family, friends, or neighbors? More than three times a week 02/06/2024 How often do you get togethe r with friends or relatives? Once a week 02/06/2024 How often do you attend chur ch or jain services? Never 02/06/2024 Do you belong to any clubs o r organizations such as yarsanism groups, unions, fraternal or athletic groups, or school groups? No 02/06/2024 How often do you attend meet ings of the clubs or organizations you belong to? Never 02/06/2024 Are you , , di vorced, , never , or living with a partner? 02/06/2024 AUDIT-C Answer Date Recorded Q1: How often do you have a drink containing alcohol? Never 02/06/2024 Q2: How many drinks containi ng alcohol do you have on a typical day when you are drinking? Patient does not drink Q3: How often do you have si x or more drinks on one occasion? Never 02/06/2024 Overall Financial Resource Strain (CARDIA) Answe r Date Recorded How hard is it for you to pa y for the very basics like food, housing, medical care, and heating? Not hard at all 02/06/2024 [facility] - Occupational Stress Questionnaire Answer Date Recorded Do you feel stress - tense, restless, nervous, or anxious, or unable to sleep at night because your mind is troubled all the time - these days? Rather much 02/06/2024 Exercise Vital Sign Answer Date Recorde d On average, how many days pe r week do you engage in moderate to strenuous exercise (like a brisk walk)? 0 days 02/06/2024 On average, how many minutes do you engage in exercise at this level? 0 min 02/06/2024 Hunger Vital Sign Answer Date Recorded Within the past 12 months, y ou worried that your food would run out before you got the money to buy more. Never true 02/06/20 24 Within the past 12 months, t he food you bought just didn't last and you didn't have money to get more. Never true 02/06/2024 PRAPARE - Transportation Answer Date Re corded In the past 12 months, has l ack of transportation kept you from medical appointments or from getting medications? No 04/2024 In the past 12 months, has l ack of transportation kept you from meetings, work, or from getting things needed for daily living? No 02/06/2024 Housing Stability Vital Sign Answer Jewel e Recorded In the last 12 months, was t here a time when you were not able to pay the mortgage or rent on time? No 02/06/2024 In the last 12 months, how many places have you lived? 1 02/06/2024 In the last 12 months, was t here a time when you did not have a steady place to sleep or slept in a residential (including now)? No 02/06/2024 Sexually Active Control Partners Comments Not Currently Male Comments No Sex and Gender Information Value Date Recorded Sex Assigned at Female 06/15/2023 6:13 PM CDT Legal Sex Female 7:47 PM CDT Gender Identity Female 06/15/2023 6:13 PM CDT Sexual Orientation Not on file documented as of this encounter Plan of Treatment Not on file documented as of this encounter Visit Diagnoses Diagnosis Gastroesophageal reflux disease without esophagitis Esophageal reflux documented in this encounter Care Teams Pin Machine Tender Relationship Specialty Start Date End Date Stephen Hearn MD [address] [facility] [address] [place] [address] PCP - General Family Medicine 06/15/20 eHma Ochoa MD Gastroenterology 04/28/16 Fahad Glover [address] [facility] [address] [place] [address] 06/13/21 Mat Encinas MD [address] [facility] [address] [place] [address] Consulting Physician Colon and Rectal Surgery 09/09/23 Caridad Padilla APRN, LAST SORTER [address] [place] [address] Nurse Practitioner Advanced Practice Nurse 08/21/23 Ge Keen MD [address] [place] [address] Consulting Physician Gastroenterology 01/01/23 documented as of this encounter
--- OUTSIDE RECORDS SUMMARY | 2025-07-27 17:46 | XMS_ITS | Clinical Summary ---
Author Organization [facility] Address [address] [place] [address] Care Team Providers Care Resident Care Spec Name Role Phone Stephen Hearn MD Primary Care Provider [phone] Sukhwinder Mckinney MD Unavailable [phone] Jason Alegria Unavailable [phone] Allergies Active Allergy Reactions Criticality Noted Date Comments Clindamycin Rash Medium 01/09/2018 Codeine Other (See comments) Low shaking Penicillins Nausea only Low Sulfa (Sulfonamide Antibiotics) Nausea only Low Sumatriptan Anxiety,Syncope High 02/01/2019 Medications buPROPion SR (WELLBUTRIN SR) 150 mg 12 hr tablet Take 1 tablet (150 mg total) by mouth 2 (two) times a day 1 Active omeprazole (PriLOSEC) 20 mg capsule Take 2 capsules (40 mg total) by mouth daily 1 Active vitamin E (AQUASOL E) 1,000 unit capsule Take 1 capsule (1,000 Units total) by mouth daily Active Xarelto 20 mg tablet Take 1 tablet (20 mg total) by mouth daily 30 tablet 2 Active acidophilus-pec tin, citrus 100 million cell-10 mg capsule Take 1 capsule by mouth daily Active FLUoxetine (PROzac) 40 mg capsule Take by mouth daily 3 Active ARIPiprazole (ABILIFY) 5 mg tablet Take 1 tablet (5 mg total) by mouth daily 3 Active metoprolol XL (TOPROL-XL) 25 mg extended release tablet Take 1 tablet (25 mg total) by mouth daily 3 Active ondansetron (ZOFRAN) 4 mg tabletIndicatio ns:Prevention of Post-Operative Nausea and Vomiting Take 1 tablet (4 mg total) by mouth every 6 (six) hours as needed for nausea or vomiting 30 tablet 1 5 Active senna-docusate (PERICOLACE) 8.6-50 mg 1-2 times daily as needed for constipation 60 tablet 1 5 Active Additional Information Patient not taking.Reported on 04/17/2025 oxyBUTYnin (DITROPAN) 5 mg tablet Take 1 tablet (5 mg total) by mouth 2 (two) times a day Active prazosin (MINIPRESS) 1 mg capsule Take 1 capsule (1 mg total) by mouth daily 5 Active oxyCODONE-aceta minophen (PERCOCET) 5-325 mg per tabletIndicatio ns:Pain Take 1 tablet by mouth every 6 (six) hours as needed for pain 28 tablet 5 Active Additional Information Patient not taking.Reported on 04/17/2025 cyclobenzaprine (FLEXERIL) 10 mg tablet Take 1 tablet (10 mg total) by mouth 2 (two) times a day as needed for muscle spasms 30 tablet 5 Active Additional Information Patient not taking.Reported on 05/09/2025 hydrOXYzine (VISTARIL) 25 mg capsule TAKE 1 CAPSULE BY MOUTH THREE TIMES A DAY NEEDED Active hydrocortisone 2.5 % cream Apply topically 2 (two) times a day for 14 days Then use as needed after each bowel movement if itching or burning recurs 30 g 2 5 Active Additional Information Patient not taking.Reported on 05/09/2025 colestipoL (COLESTID) 1 gram tablet Take 1 tablet (1 g total) by mouth daily Active diphenhydrAMINE 25 mg capsule Take 1 tablet every day by oral route at bedtime. Active Active Problems Problem Noted Date Diagnosed Date Abnormal CT scan, colon 04/26/2025 Dysphagia 02/17/2025 Incomplete tear of right rotator cuff 12/13/2024 Biceps tendinitis on right 11/24/2024 Impingement syndrome of right shoulder Arthritis of right acromioclavicular joint 11/24 Abdominal aortic aneurysm (AAA) without rupture 05/27/2024 Trigger thumb of left hand 11/20/2022 Overview (11/20/2022): Added automatically from request for surgery [id number] Cubital tunnel syndrome 07/03/2021 Overview (07/03/2021): Added automatically from request for surgery [id number] Carpal tunnel syndrome, bilateral 06/25/2021 Overview (06/25/2021): Added automatically from request for surgery [id number] Cubital tunnel syndrome on right 06/25/2021 Overview (06/25/2021): Added automatically from request for surgery [id number] Diarrhea 06/17/2021 Family history of cardiovascular disease 021 Family history of stroke 06/17/2021 Family history of ischemic h eart disease and other diseases of the circulatory system 06/17/2021 Lymphoid hyperplasia 06/17/2021 Overview (06/17/2021): On biopsies Anemia 06/13/2021 BMI 34.0-34.9,adult 06/13/2021 Gastroesophageal reflux disease without esophagi tis 06/13/2021 Vitamin D deficiency 06/13/2021 Oropharyngeal dysphagia 03/12/2021 Assessment & Plan (03/12/2021 9:53 PM CDT): Referral to GI for dysphagia, h/o multiple EGDs and esophageal dilations Impacted cerumen of right ear 03/12/2021 Assessment & Plan (03/12/2021 9:53 PM CDT): Avoid ear cleaning techniques Avoid water to ears Hearing loss 03/11/2021 Assessment & Plan (03/11/2021 2:18 PM CDT): Hearing test - [facility] Referral to GI for dysphagia, h/o multiple EGDs and esophageal dilations Chronic migraine without aur a without status migrainosus, not intractable 11/23/2020 Shortness of breath 06/04/2020 Thoracic aortic aneurysm without rupture 020 Enteritis 10/13/2019 IBS (irritable bowel syndrome) 06/13/2019 Overview (06/13/2019): Overview: Diarrhea predominant Morbid obesity 06/07/2019 Syncope 03/23/2019 group home (current) use of anticoagulants 2018 Chest pain, unspecified 02/08/2019 Acute embolism and thrombosis of unspecified vei n 02/08/2019 Migraine 02/08/2019 Bipolar 1 disorder, depressed 06/03/2016 Obstructive sleep apnea syndrome 06/03/2016 White matter disease 03/25/2016 Deep venous thrombosis of upper extremity 2014 Oligomenorrhea 04/04/2013 Encounters Date Type Department Care Team Description 07/10/2025 Telephone [facility] Gastroenterology at [address] [place] [address] [place], [place] 05/16/2025 Results Follow-Up [facility] Gastroenterology at [address] [place] [address] Álvaro Suero MD Surgical pathology 05/15/2025 Telephone [facility] Gastroenterology at [address] [place] [address] Esmer Lazaro LPN 05/10/2025 2:30 PM CDT Anesthesia Event [address] [address] Fausto Schmitt MD Alexander, Jeffrey Michael, DO 05/10/2025 1:30 PM CDT - 05/10/2025 2:00 PM CDT Surgery [address] [address] Álvaro Suero MD COLON BIOPSY 05/10/2025 10:55 AM CDT - 05/10/2025 4:00 PM CDT Hospital Encounter [address] [place] [address] Álvaro Suero MD Abnormal CT scan, colon; Diarrhea, unspecified type Discharge Disposition: Discharge to home or self care 05/08/2025 Telephone [facility] Gastroenterology at [address] [place] [address] Jovan Moses MA 05/02/2025 Results Follow-Up [facility] Gastroenterology at [address] [place] [address] Álvaro Suero MD Thyroid Function Whiteside, IgA, Tissue transglutaminase IgA (TGG-IgA Ab), Additional followed-up results: 8 05/01/2025 10:40 AM CDT - 05/01/2025 11:59 PM CDT Hospital Encounter [address] Diarrhea of presumed infectious origin; Diarrhea due to malabsorption Discharge Disposition: Discharge to home or self care 05/01/2025 Telephone [facility] [address] [place] [address] [address] [place] [address] Jason Alegria PA Right shoulder locking up 04/30/2025 Ancillary Procedure [facility] 04/28/2025 11:40 AM CDT Lab [address] Diarrhea of presumed infectious origin; Diarrhea due to malabsorption 04/27/2025 Orders Only [facility] Gastroenterology at [address] [place] [address] Álvaro Suero MD Diarrhea of presumed infectious origin (Primary Dx); Diarrhea due to malabsorption 04/26/2025 Telephone [facility] Gastroenterology at [address] [place] [address] Esmer Lazaro LPN from Last 3 Months Surgical History Surgery Date Site/Laterality Comments COLONOSCOPY ESOPHAGOGASTRODUODENOSCOPY THYROID SURGERY cyst removed CARPAL TUNNEL RELEASE Left SHOULDER SURGERY 12/03/2024 - 12/30/2024 Right COLONOSCOPY 05/10/2025 Medical History Medical History Date Comments Hx Other Medical bipolar Hx Other Medical Headache, migra ine Tension headache Headache, tensi on IBS (irritable bowel syndrome) GERD (gastroesophageal reflux disease) Carpal tunnel syndrome Hypertension Migraine Hiatal hernia Kidney stone Bleeding disorder Anemia Depression Sleep apnea patient stated s he does not use a cpap Bipolar disorder PONV (postoperative nausea and vomiting) DVT of upper extremity (deep vein thrombosis) (HCC) Aortic aneurysm patient stated t hey thought she had a AAA but she stated the CT Scan was negative for one Delayed emergence from general anesthesia Anxiety Family History Medical History Relation Name Comments Hypertension Mother Hypertension; Relation Name Status Comments Mother Social History Tobacco Use Types Packs/Day Years Used Date Smoking Tobacco: Never Smokeless Tobacco: Never Tobacco Cessation:Counseling Given: Not Answered Alcohol Use Standard Drinks/Week Comments No 0 (1 standard drink = 0.6 oz pur e alcohol) AUDIT-C Answer Date Recorded Q1: How often do you have a drink containing alcohol? Never 05/09/2025 Q2: How many drinks containi ng alcohol do you have on a typical day when you are drinking? Patient does not drink Q3: How often do you have si x or more drinks on one occasion? Never 05/09/2025 Personal Safety Answer Date Recorded Have you ever been in or are you currently in a harmful physical or emotional relationship or is someone making you feel afraid or unsafe? 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 Gender Identity Not on file Sexual Orientation Not on file Obstetrics History Last Filed Vital Signs Vital Sign Reading Time Taken Comments Blood Pressure 125/68 05/10/2025 3:46 PM CDT Pulse 85 05/10/2025 3:46 PM CDT Temperature 36.3 C (97.3 F) 05/10/2025 3:46 PM CDT Respiratory Rate 16 05/10/2025 3:46 PM CDT Oxygen Saturation 97% 05/10/2025 3:46 PM CDT Inhaled Oxygen Concentration - - Weight 88.5 kg (195 lb) 05/10/2025 11:58 AM CDT Height 152.4 cm (5') 05/10/2025 11:58 AM CDT Body Mass Index 38.08 05/10/2025 11:58 AM CDT Plan of Treatment Health Maintenance Due Date Last Done Comments Cervical Cancer Screening 1980 Depression Screening 1980 Hepatitis C Screening 1980 Varicella Vaccines (1 of 2 - 13+ 2-dose series) 1993 Hepatitis B Screening 1998 Regular Well Visit/Exam 18-64 1998 HPV Vaccines (1 - 3-dose SCDM series) 2007 Pneumococcal vaccine <65 (2 of 2 - PCV) 07/05/2015 0 07/05/2014 Breast Cancer Screening-Mammogram 03/27/2023 022, 03/27/2022 Influenza Vaccine (#1) 2025 DTaP/Tdap/Td Vaccine (2 - Td or Tdap) 04/10/202607/2016 Colon Cancer Screening-Colonoscopy 05/10/20352024 Procedures Procedure Name Priority Date/Time Associated Diagnosis Comments COLON BIOPSY 05/10/2025 2:[address] scan, colon Diarrhea, unspecified type POCT HCG, URINE Routine 05/10/2025 12:00 PM CDT COLONOSCOPY 05/10/2025 10:57 AM CDT SURGICAL PATHOLOGY STAT 05/10/2025 8: [address] scan, colon Diarrhea, unspecified type FECAL FAT, QUANTITATIVE Routine 05/01/20 25 10:40 AM CDT CALPROTECTIN, FECAL Routine 05/01/2025 1 0:40 AM CDT Diarrhea of presumed infectious origin Diarrhea due to malabsorption PANCREATIC ELASTASE, STOOL Routine 05/01/2025 10:40 AM CDT Diarrhea due to malabsorption C. DIFFICILE TESTING Routine 05/01/2025 10:40 AM CDT Diarrhea of presumed infectious origin CRYPTOSPORIDIUM AND GIARDIA ANTIGEN ASSAY Routine 05/01/2025 10:40 AM CDT Diarrhea of presumed infectious origin Diarrhea due to malabsorption STOOL CULTURE Routine 05/01/2025 10:40 AM CDT Diarrhea of presumed infectious origin XR TRANSFER OF OUTSIDE FILMS Routine 04/30/2025 12:00 AM CDT CRP (ACUTE PHASE) Routine 04/28/2025 11: 45 AM CDT Diarrhea of presumed infectious origin Diarrhea due to malabsorption ERYTHROCYTE SEDIMENTATION RATE Routine 04/28/2025 11:45 AM CDT Diarrhea of presumed infectious origin Diarrhea due to malabsorption TISSUE TRANSGLUTAMINASE, IGA Routine 04/28/2025 11:45 AM CDT Diarrhea of presumed infectious origin Diarrhea due to malabsorption IGA Routine 04/28/2025 11:45 AM CDT Diarrhea of presumed infectious origin Diarrhea due to malabsorption THYROID FUNCTION CASCADE Routine 04/28/2025 11:45 AM CDT Diarrhea of presumed infectious origin Diarrhea due to malabsorption from Last 3 Months Results * POCT hCG, urine (05/10/2025 12:00 PM CDT) HCG, ur, POC Negative Negative Lot Number [id number] QC Backgroud Clear Acceptable QC Control Line Acceptable Urine 05/10/2025 12:0 0 PM CDT Álvaro Suero MD POINT OF CARE TEST ORDERABLES Fi nal Result * Colonoscopy (05/10/2025 10:57 AM CDT) Anatomical Region Laterality Modality Other Narrative Procedure Note Álvaro Suero MD - 05/10/2025 10:57 AM CDT [facility] Patient Name: Nataly Zamora Procedure Date: 05/10/2025 10:57 AM Date of : 1980 Admit Type: Outpatient Age: 45 Gender: Female Attending MD: Álvaro Suero M.D. Room: [facility] ENDOSCOPY ROOM 2 Note Status: Finalized Patient Profile: This is a 45 year old female hx of obesity,anxiety, depression, bipolar, HTN, MAUREEN, migraine, GERD herefor colonoscopy for diarrhea work up. Recent stoolstudies showed elevated fecal calprotectin of 104. ESR andCRP elevated as well. Recent CT 03/2025 showed scattered areas of submucosal fat deposition in the colon possibly reflecting chronic inflammatory bowelprocess but no bowel wall thickening or mesentericstranding to indicate active disease. Last colonoscopy [id number] showed hemorrhoids. Procedure: Colonoscopy Indications: Last colonoscopy: 2019, Clinically significant diarrhea of unexplained origin, Abnormal CT of theGI tract, elevated fecal calprotectin Referring MD: Stephen Hearn M.D. Providers: Álvaro Suero M.D. Impression: - There was significant looping of the colon. - Erythematous mucosa in the rectum. Biopsied. - External and internal hemorrhoids. Recommendation: - Patient has a contact number available for emergencies. The signs and symptoms of potential delayed complications were discussed with thepatient. Return to normal activities tomorrow. Written discharge instructions were provided to thepatient. - Discharge patient to home (with escort). - Resume previous diet. - No ibuprofen, naproxen, or other non-steroidal anti-inflammatory drugs. - Await pathology results. - Repeat colonoscopy for surveillance based on pathology results. - Return to GI clinic as previously scheduled. Medicines: Monitored Anesthesia Care Complications: No immediate complications. Estimated Blood Loss: Estimated blood loss was minimal. Procedure: Pre-Anesthesia Assessment: - Prior to the procedure, a History and Physicalwas performed, and patient medications and allergieswere reviewed. The patient is competent. The risks and benefits of the procedure and the sedation optionsand risks were discussed with the patient. Allquestions were answered and informed consent was obtained. Patient identification and proposed procedure were verified by the physician, the assessment specialist and the blood bank technician in the endoscopy suite. Mental Status Examination: normal. Prophylactic Antibiotics: The patient does not require prophylactic antibiotics. Prior Anticoagulants: The patient has taken no anticoagulant or antiplatelet agents. Afterreviewing the risks and benefits, the patient was deemed in satisfactory condition to undergo the procedure.The anesthesia plan was to use monitored anesthesiacare (MAC). Immediately prior to administration of medications, the patient was re-assessed foradequacy to receive sedatives. The heart rate, respiratory rate, oxygen saturations, blood pressure, adequacyof pulmonary ventilation, and response to care were monitored throughout the procedure. The physical status of the patient was re-assessed after the procedure. The benefits, risks and alternatives of theprocedure and sedation were discussed and informed consentwas obtained. All questions were answered. Please referto the signed informed consent document in the medical record. The bowel preparation used was Miralax via split dose instruction. The bowel preparation usedwas bisacodyl tablets via split dose instruction. The scope was passed under direct vision. TheColonoscope [id number] was introduced through the anus and advanced to the the cecum, identified by appendiceal orifice and ileocecal valve. The scopewas passed under direct vision. The PediatricColonoscope [id number] was introduced through the and advanced to the. The colonoscopy was performed with difficulty due to significant looping. The patient tolerated the procedure well. The quality of thebowel preparation was adequate. Bowel prep wasadministered using a split dose. Findings: The perianal and digital rectal examinations were normal. The colon (entire examined portion) revealed excessive looping, advancing the scope required using colowrap and tightening thestraps An area of mildly erythematous mucosa was found in the rectum. Thiswas biopsied with a cold forceps for histology. External and internal hemorrhoids were found during retroflexion. Álvaro Suero M.D. 05/10/2025 3:44:03 PM Number of Addenda: 0 Note Initiated On: 05/10/2025 10:57 AM Procedure Code(s): --- Professional --- 01936, Colonoscopy, flexible; with biopsy, single or multiple --- Technical --- 53897, Colonoscopy, flexible; with biopsy, single or multiple Diagnosis Code(s): --- Professional --- K64.8, Other hemorrhoids K62.89, Other specified diseases of anus and rectum R19.7, Diarrhea, unspecified R93.3, Abnormal findings on diagnostic imaging of other parts of digestive tract --- Technical --- K64.8, Other hemorrhoids K62.89, Other specified diseases of anus and rectum R19.7, Diarrhea, unspecified R93.3, Abnormal findings on diagnostic imaging of other parts of digestive tract CPT copyright 2020 [employer]. All rights reserved. The codes documented in this report are preliminary and upon concaving machine operator reviewmay be revised to meet current compliance requirements. Recognized by the [employer] for promoting quality in endoscopy Álvaro Suero MD ENDOSCOPY PROCEDURES Final Resul t * Surgical pathology (05/10/2025 8:35 AM CDT) Tissue (Colon, Biopsy) 05/10/2025 3:04 PM CDT Tissue specimen (specimen) (Colon, Biopsy) 05/10/2025 3:14 PM CDT Narrative PATHOLOGY [facility] ([facility]) - 05/16/2025 2:36 PM CDT EPIC results best viewed via link to PDF [facility] Department of Pathology [address] [place] [id number] Note to Patients: This report may contain a detailed description of human tissue sent by a health care provider to the laboratory for pathologic evaluation. The content of this report is essential for diagnosis and may provide important critical findings. This information may be unfamiliar to patients to review without a medical professional present. It is advised that the patient review this report in the presence of a health care provider who can answer questions and explain the details. Final Report Patient Name: NATALY ZAMORA Address: [address] [place] [address]- Gender: F : 1980 (Age: 45) Service: Gastro Location: [facility] Hospital #: [id number] Patient Type: [facility] Taken: 05/10/2025 Received: 05/11/2025 Accessioned: 05/11/2025 Reported: 05/16/2025 Physician(s):Álvaro Suero MD Diagnosis: A. Colon, random, biopsy: - Congested colonic mucosa. - No evidence of dysplasia or malignancy. - See microscopic description. B. Rectum, biopsy: - Congested rectal mucosa with scattered lymphoid aggregates. - No evidence of dysplasia or malignancy. Shant Carrillo MD Report Electronically Reviewed and Signed Out By Shant Carrillo MD 05/16/2025 14:36:43 Specimen(s) Received: A: Random colon biopsies B: Rectum colon biopsies Microscopic Description: A. Microscopic examination shows congested, though otherwise unremarkable colonic mucosa. There is no significant active inflammation. There is no evidence of dysplasia or malignancy. The current findings are nonspecific. Clinical correlation is recommended. B. Microscopic examination shows fragments of congested rectal mucosa with scattered intramucosal lymphoid aggregates, one of which is quite prominent. CD3, CD5, CD43, CD10, CD20, BCL-2, BCL-6, CD23, Cyclin D1, and Ki-67 stains are performed with appropriately reactive controls on block B1 to evaluate the lymphoid aggregates. CD3 and CD20 highlight an appropriate mixture of T and B cells, respectively. CD5 and CD43 highlight T cells in a similar distribution to CD3. BCL-6 and CD10 highlight germinal centers while BCL-2 is appropriately negative within these germinal centers. CD23 highlights follicular dendritic cell meshwork. Cyclin D1 is negative in lymphocytes. The Ki-67 proliferation index is low overall, higher in the germinal centers. The aforementioned staining pattern supports a benign/reactive process with secondary follicles. There is no evidence of dysplasia or malignancy. Intradepartmental consultation: This specimen was also reviewed by Dr. Maxwell, who concurs with the above findings. Clinical History: Abnormal CT scan, colon. Diarrhea. Colonoscopy. Gross Description: The specimen is submitted in two formalin containers labeled NATALY ZAMORA. A. The first container is labeled random colon. It is multiple trivedi tissue fragments, each measuring 1 mm. All in A. B. The second container is labeled rectum. It is 4 trivedi tissue fragments, each measuring 1 mm. All in B. T.A. Theresa Dover, Edwina./Marvin Redmond M.D. REPORT IMAGES AND SCANNED DOCUMENTS, IF INCLUDED, ONLY VIEWABLE IN PDF VERSION OF REPORT The performance characteristics of some immunohistochemical stains, fluorescence in-situ hybridization tests and immunophenotyping by flow cytometry cited in this report (if any) were determined by the Surgical Pathology Department at [facility] as part of an ongoing quality control scientist program and in compliance with federally mandated regulations drawn from the Clinical Laboratory Improvement Act of 1988 (CLIA '88). Some of these tests rely on the use of analyte specific reagents and are subject to specific labeling requirements by the US Food and Drug Administration. Such diagnostic tests may only be performed in a facility that is certified by the Department of Health and Human Services as a high complexity laboratory under CLIA '88. The FDA has determined that such clearance or approval is not necessary. This test is used for clinical purposes. It should not be regarded as investigational or for research. Nevertheless, federal rules concerning the medical use of analyte specific reagents require that the following disclaimer be attached to the report: This test was developed and its performance characteristics determined by the Surgical Pathology Department [facility]. It has not been cleared or approved by the U. S. Food and Drug Administration. Note for decalcified specimens: This assay has not been validated on decalcified tissues. Results should be interpreted with caution given the possibility of false negativity on decalcified specimens Álvaro Suero MD LAB PATHOLOGY ORDERABLES Final R esult PATHOLOGY [facility] [address] [place], [place] [id number] * C. difficile testing Stool (05/01/2025 10:40 AM CDT) Pathologist [facility] Result Negative Negative Toxin Result Negative Negative [facility] C. diff result Negative, free toxin Negative, free toxin [facility] ([place]) C. diff interp Negative for toxigenic Clostridioides (Clostridium) difficile. Analysis was performed using a glutamate dehydrogenase antigen detection assay combined with a C. difficile toxin detection assay. [facility] ([place]) Stool 05/01/2025 10:4 0 AM CDT 05/01/2025 1:22 PM CDT Álvaro Suero MD LAB MICROBIOLOGY - GENERAL ORDER MYKE Final Result Performing Organization Address [facility] Co de Phone Number CANDIE [facility] ([place] [address] [place] [address] * (ABNORMAL) Calprotectin, fecal (05/01/2025 10:40 AM CDT) Calprotectin, fecal 104(H) <50.0 (Normal) mcg/g [facility] Comment: Interpretation: Borderline (50.0-120 mcg/g) Test Performed by: [facility] [address] [place] [address] Personnel Counselor: Carol Ingram Ph.D.; CLIA# [id number] Stool 05/01/2025 10:4 0 AM CDT 05/01/2025 1:22 PM CDT Álvaro Suero MD LAB BODY FLUIDS AND STOOLS ORDER MYKE Final Result Performing Organization Address [facility] de Phone Number CANDIE [facility], [facility] ([place]) [address] [place] [address] [place] [facility] * Cryptosporidium and Giardia antigen assay Stool (05/01/2025 10:40 AM CDT) Giardia Ag Negative Negative Comment:Testing performed by : [facility], 1 [facility] [place]., [address] Cryptosporidium Ag Negative Negative Jo CHAN ([place]) Comment: Interpretive data: Testing performed by the [facility] using an immunoassay that detects Cryptosporidium and Giardia antigens in stool specimens. If comprehensive examination for ova and parasites is required, please request Ova and Parasite Examination. Testing performed by: [facility], 1 [place]., [address] Stool 05/01/2025 10:4 0 AM CDT 05/01/2025 4:50 PM CDT Álvaro Suero MD LAB MICROBIOLOGY - GENERAL ORDER MYKE Final Result Performing Organization Address [facility] de Phone Number CANDIE [email or web address] ([place]) 1 [facility] [place] [address] * Pancreatic elastase, stool (05/01/2025 10:40 AM CDT) Pancreatic elastase, stool 207 >200 (Normal) mcg/g [facility] Comment: Test Performed by: [place] [address] Personnel Counselor: Carol Ingram Ph.D.; CLIA# [id number] Stool 05/01/2025 10:4 0 AM CDT 05/01/2025 1:22 PM CDT Álvaro Suero MD LAB BODY FLUIDS AND STOOLS ORDER MYKE Final Result Performing Organization Address [facility] de Phone Number CANDIE [facility] ([place]) 1 [facility] [place] [address] [place] [facility] * Fecal fat, quantitative (05/01/2025 10:40 AM CDT) Weight, fecal 41 g [facility] Period, fecal Random H [facility] ([place]) Comment: More reliable results can be obtained from a timed collection. 48 and 72 hour collections will give the most reliable results. Percent Fat >20% in a random collection is suggestive of a fat malabsorption disorder and should be confirmed with a timed collection. Fat solids, 24 hr fecal Not Reported [facility] ([place]) Fat, percent of solids, fecal 18 <20 [facility] ([place]) Comment: ADDITIONAL INFORMATION This test was developed and its performance characteristics determined by [facility] in a manner consistent with CLIA requirements. This test has not been cleared or approved by the U.S. Food and Drug Administration. Test Performed by: [facility] - [address] [address] Personnel Counselor: Carol Ingram Ph.D.; CLIA# [id number] Stool 05/01/2025 10:4 0 AM CDT 05/01/2025 1:22 PM CDT Álvaro Suero MD LAB BODY FLUIDS AND STOOLS ORDER MYKE Final Result CANDIE CHAN ([place]) 1 [facility] Department [place] [address] [place] [facility] * Stool culture Stool Rectum (05/01/2025 10:40 AM CDT) Direct Specimen Exam Shiga Toxin Testing: Antigen detection assay for Shiga-toxin NEGATIVE for Shiga Toxin 1 and Shiga Toxin 2. Comment:Testing performed by : [facility], 1 [place]., [address] Report Final Report: No growth of enteric bacterial pathogens CANDIE CHAN ([place]) Comment:Testing performed by : [facility], [address] [place] [address]., [address] Stool (Rectum) 05/01/2025 10 :40 AM CDT 05/01/2025 4:49 PM CDT Narrative CANDIE CHAN ([place]) - 05/05/2025 10:50 AM CDT Received in transport media. Testing performed by [facility] ([phone]). Routine stool cultures include procedures to detect Salmonella, Shigella, Edwardsiella, Aeromonas, Pleisiomonas, Campylobacter, Yersinia, E. coli O157, and Shiga-like toxins. Vibrio is cultured only upon special request. If Vibrio is suspected, please call the laboratory at [phone]. Interpretive data was last updated March 09, 2017. Álvaro Suero MD LAB MICROBIOLOGY - GENERAL ORDER MYKE Final Result Performing Organization Address City/[facility]/ZIP Co de Phone Number CANDIE CHAN ([place]) 1 [facility] [place] [address] * XR Outside Reference (04/30/2025 12:00 AM CDT) Narrative [facility] - 05/01/2025 1:16 PM CDT This order has been auto-finalized and does not contain a result. us Provider Transcribed Order IMG XR PROCEDURES Fin al Result Performing Organization Address [facility] Co de Phone Number [facility] * Thyroid Function Wh[place] (04/28/2025 11:45 AM CDT) TSH 3.10 0.30 - 4.20 mcIUnit/mL Blood 04/28/2025 11:4 5 AM CDT 04/28/2025 1:50 PM CDT Álvaro Suero MD LAB BLOOD ORDERABLES Final Resul t Performing Organization Address [facility] de Phone Number CANDIE CHAN ([place]) 1 [facility] Department of [place] [address] * Tissue transglutaminase IgA (TGG-IgA Ab) (04/28/2025 11:45 AM CDT) TTG ab, IgA <0.5 <=14.9 units/mL Comment: Interpretive data Negative: <15 units/mL Positive: > or equal to 15 units/mL Current interpretive data was last revised on 2017. Testing performed by: [facility], 1 [facility], [place]., [address] Blood 04/28/2025 11:4 5 AM CDT 04/28/2025 4:29 PM CDT Álavro Suero MD LAB BLOOD ORDERABLES Final Resul t Performing Organization Address [facility] Co de Phone Number CANDIE CHAN ([place]) 1 [facility] [place] [address] * (ABNORMAL) Erythrocyte sedimentation rate (04/28/2025 11:45 AM CDT) Erythrocyte sedimentation rate 53(H) 1 - 20 mm/hr Blood 04/28/2025 11:4 5 AM CDT 04/28/2025 1:50 PM CDT Álvaro Suero MD LAB BLOOD ORDERABLES Final Resul t Performing Organization Address [facility] de Phone Number CANDIE CHAN ([place]) 1 [facility] [place] [address] * (ABNORMAL) CRP (acute phase) (04/28/2025 11:45 AM CDT) CRP 30.1(H) <=10.0 mg/L Blood 04/28/2025 11:4 5 AM CDT 04/28/2025 1:50 PM CDT us Álvaro Suero MD LAB BLOOD ORDERABLES Final Resul t Performing Organization Address [facility] Co de Phone Number CANDIE CHAN ([place]) 1 [facility] [place] [address] * IgA (04/28/2025 11:45 AM CDT) Immunoglobulin A 295 70 - 400 mg/dL Comment:Testing performed by : [facility], [address] [place] [address], [place]., [address] Blood 04/28/2025 11:4 5 AM CDT 04/28/2025 5:24 PM CDT us Álvaro Suero MD LAB BLOOD ORDERABLES Final Resul t CANDIE CHAN [place]) 1 [facility] [place] [address] from Last 3 Months Insurance [facility] Advance Directives For more information, please contact: [phone] * Full Code (Latest Code Status on File) Date Activated Date Inactivated Comments 05/10/2025 11:57 AM 05/10/2025 8:25 PM * Full Code Date Activated Date Inactivated Comments 05/10/2025 11:57 AM 05/10/2025 11:57 AM * Full Code Date Activated Date Inactivated Comments 03/13/2025 10:34 AM 03/13/2025 6:08 PM * Full Code Date Activated Date Inactivated Comments 03/13/2025 10:34 AM 03/13/2025 10:34 AM Care Teams Resident Care Spec Relationship Specialty Start Date End Date Stephen Hearn MD PCP - General 09/15/20 Sukhwinder Mckinney MD [address] [place] [address] [address] [facility] [address] [place] [address] Entry Rep Obstetrics and Gynecology 08/07/22 Jason Alegria PA [address] [place] [address] [address] [place] [address] Orthopedic Surgery 12/13/24
--- OUTSIDE RECORDS SUMMARY | 2025-07-27 17:46 | XMS_ITS | Encounter Summary ---
Author Organization [facility] Address [address] [place] [address] Phone Care Team Providers Care Representative Phlebotomy Services Name Role Phone Hema Ochoa MD Unavailable Stephen Hearn MD Primary Care Provider [phone] Fahad Glover Unavailable Mat Encinas MD Unavailable Caridad Padilla APRN, CHEMICAL COMPOUNDER HELPER Unavailable Ge Keen MD Unavailable [phone] Reason for Visit * Reason Comments Medication Refill Encounter Details Date Type Department Care Team (Late st Contact Info) Description 11/24/2024 Refill [facility] - Gastroenterology [facility] [address] [place] [id number] Caridad Padilla APRN, CHEMICAL COMPOUNDER HELPER [address] [place] [address] Medication Refill Social History Tobacco Use Types Packs/Day Years Used Date Smoking Tobacco: Never Smokeless Tobacco: Never Alcohol Use Standard Drinks/Week Comments No 0 (1 standard drink = 0.6 oz pur e alcohol) [facility] Util[facility] Answer Date Recorded In the past 12 months has [employer], gas, oil, or water [employer] threatened to shut off services in your [...] often do you attend chur ch or mosque services? Never 02/06/2024 Do you belong to any clubs o r organizations such as yazidism groups, unions, fraternal or athletic groups, or [...] and heating? Not hard at all 02/06/2024 [facility] [...] place to sleep or slept in a group home (including now)? No 02/06/2024 Sexually Active Control Partners Comments Not Currently Male Comments No Sex and Gender Information Value Date Recorded Sex Assigned at Female 06/15/2023 6:13 PM CDT Legal Sex Female 7:47 PM CDT Gender Identity Female 06/15/2023 6:13 PM CDT Sexual Orientation Not on file documented as of this encounter Miscellaneous Notes * Telephone Encounter - Ronel Murillo RN - 11/24/2024 9:29 AM SWIMMING COACH Medication refilled and signed per [facility] chronic medication standing order for pediatric and adult patients. MING COACH * Telephone Encounter - Ronel Murillo RN - 11/24/2024 9:27 AM SWIMMING COACH Refill received for omeprazole. MING COACH documented in this encounter Plan of Treatment Not on file documented as of this encounter Visit Diagnoses Diagnosis Gastroesophageal reflux disease without esophagitis Esophageal reflux documented in this encounter Additional Health Concerns Infection Onset Date Last Indicated Resolved Time COVID - 19 01/05/2025 01/05/2025 01/05/2025 9:48 AM SWIMMING COACH documented as of this encounter Care Teams Representative Phlebotomy Services Relationship Specialty Start Date End Date Stephen Hearn MD [address] [place] [address] [address] [place] [address] PCP - General Family Medicine 06/15/20 Hema Ochoa MD Gastroenterology 04/28/16 Fahad Glover [address] [place] [address] 06/13/21 Mat Encinas MD [address] [address] Consulting Physician Colon and Rectal Surgery 09/09/23 Caridad Padilla APRN, CHEMICAL COMPOUNDER HELPER [address] [place] [address] Nurse Practitioner Advanced Practice Nurse 08/21/23 Ge Keen MD [address] [place] [address] Consulting Physician Gastroenterology 01/01/23 documented as of this encounter
--- OUTSIDE RECORDS SUMMARY | 2025-07-27 17:46 | XMS_ITS | Clinical Summary ---
Author Organization [facility] Address [address] [place] [address] Phone Care Team Providers Care Ecommerce Analyst Name Role Phone Hema Ochoa MD Unavailable Stephen Hearn MD Primary Care Provider [phone] Fahad Glover Unavailable Mat Encinas MD Unavailable Caridad Padilla APRN, COMMUNICATIONS DEPARTMENT HEAD Unavailable Ge Keen MD Unavailable [phone] Allergies Active Allergy Reactions Criticality Noted Date Comments Clindamycin Hcl Rash 12/03/2016 Codeine Other (see Comments) 09/20/2015 Shaking Sumatriptan Other (see Comments) 09/20/2015 dizziness Penicillins Nausea 09/20/2015 Pt has had PCN since and took with food and did not have any problems--tjo Sulfa Antibiotics Nausea 07/21/2021 Acetaminophen-Codeine Unknown,Other (see Comments) shakes Medications Probiotic Product (PROBIOTIC-10 PO) Take 2 Capsules by mouth 2 times daily. GUMMY CHEWS Active buPROPion SR (WELLBUTRIN SR) 150 MG TABLET SR 12 HR Take 150 mg by mouth 2 times daily. Active VITAMIN E PO Take by mouth daily. Active metoprolol Succinate (TOPROL-XL) 25 MG TABLET SR 24 HR Take 25 mg by mouth. 11/02/18 70 Active rivaroxaban (Xarelto) 20 MG TabletIndications: Venous Thromboembolism Take 1 Tablet by mouth daily (with dinner). Take with food. Indications: Venous Thromboembolism 90 Tablet 2 11/15/19 24 Active ondansetron (ZOFRAN-ODT) 4 MG TABLET DISPERSIBLE Take 1 Tablet by mouth every 8 hours as needed for Nausea - 1st line. 20 Tablet 01/28/20 24 Active ARIPiprazole (ABILIFY) 5 MG Tablet Take 5 mg by mouth daily. 12/30/19 24 Active FLUoxetine (PROZAC) 40 MG Capsule Take 40 mg by mouth daily. 01/29/20 24 Active senna 8.6 MG Tablet Take 1 Tablet by mouth daily as needed for Constipation - 1st line. 30 Tablet 02/07/20 24 Active neomycin-polymyxin -hydrocortisone (CORTISPORIN) 3.5-75499-8 Suspension INSTILL 4 DROPS INTO AFFECTED EAR(S) BY OTIC ROUTE 3 TIMES PER DAY NEEDED 03/24/20 24 Active oxybutynin (DITROPAN) 5 MG Tablet Take 5 mg by mouth 2 times daily. 03/28/20 24 Active ondansetron (ZOFRAN) 4 MG Tablet Take 1 Tablet by mouth every 8 hours as needed for Nausea - 1st line. 10 Tablet 04/20/20 24 Active omeprazole (PriLOSEC) 40 MG CAPSULE DELAYED RELEASEIndications :Gastroesophageal reflux disease without esophagitis TAKE 1 CAPSULE BY MOUTH EVERY DAY 90 Capsule 1 11/24/19 25 Active colestipol (COLESTID) 1 GM TabletIndications: Irritable bowel syndrome with diarrhea Take 1 Tablet by mouth daily. 30 Tablet 2 02/29/20 25 Active metoclopramide (REGLAN) 10 MG Tablet Take 1 Tablet by mouth 4 times daily as needed for Nausea - 1st line. 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 Obstructive sleep apnea syndrome on CPAP 016 Bipolar 1 disorder, depressed 06/03/2016 White matter disease 03/25/2016 Intractable migraine without aura and without status migrainosus 03/25/2016 Recurrent Deep venous thrombosis of upper extrem ity 09/20/2015 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 Encounters Date Type Department Care Team Description 07/26/2025 [facility] [place] [address] Caridad Padilla APRN, COMMUNICATIONS DEPARTMENT HEAD Medication Refill 07/20/2025 Refill [facility] [address] [place] [address] Caridad Padilla APRN, COMMUNICATIONS DEPARTMENT HEAD Medication Refill 07/06/2025 Refill [facility] [address] [place] [address] Caridad Padilla APRN, COMMUNICATIONS DEPARTMENT HEAD Medication Refill 06/30/2025 Refill [facility] [address] [place] [address] Caridad Padilla APRN, COMMUNICATIONS DEPARTMENT HEAD Medication Refill 05/17/2025 6:45 PM CDT - 05/17/2025 9:22 PM CDT Emergency [facility] Emergency [address] [place] [address] Perico Song MD Generalized abdominal pain Discharge Disposition: Discharged to home or Selfcare 05/17/2025 Travel from Last 3 Months Family History Medical History Relation Name Comments Alzheimer's Disease Father Diabetes Father No Known Problems Half-Brother 1 No Known Problems Half-Brother 2 No Known Problems Half-Brother 3 No Known Problems Half-Sister Breast Cancer Maternal Aunt Cancer Maternal Grandfather bone Heart Attack Maternal Grandfather Kidney Stones Maternal Grandfather Stroke Maternal Grandfather Kidney Stones Maternal Grandmother Stroke Maternal Grandmother Heart Attack Mother High Cholesterol Mother Hypertension Mother Heart Attack Paternal Grandfather Kidney Stones Paternal Grandfather Stroke Paternal Grandfather Kidney Stones Paternal Grandmother Stroke Paternal Grandmother Relation Name Status Comments Father Alive Half-Brother 1 Alive Half-Brother 2 Alive Half-Brother 3 Alive Half-Sister Alive Maternal Aunt Maternal Grandfather Maternal Grandmother Mother Alive Paternal Grandfather Paternal Grandmother Social History Tobacco Use Types Packs/Day Years Used Date Smoking Tobacco: Never Smokeless Tobacco: Never Tobacco Cessation:Counseling Given: Not Answered Alcohol Use Standard Drinks/Week Comments No 0 (1 standard drink = 0.6 oz pur e alcohol) [facility] Utilities Answer Date Recorded In the past 12 months has e [employer], gas, oil, or water [employer] threatened to shut off services in your [...] 02/06/2024 How often do you attend chur or baptism services? Never 02/06/2024 Do you belong to any clubs o r organizations such as congregational groups, unions, fraternal or athletic groups, or [...] place to sleep or slept in a fci (including now)? No 02/06/2024 Sexually Active Control Partners Comments Not Currently Male Comments No Sex and Gender Information Value Date Recorded Sex Assigned at Female 06/15/2023 6:13 PM CDT Legal Sex Female 7:47 PM CDT Gender Identity Female 06/15/2023 6:13 PM CDT Sexual Orientation Not on file Last Filed Vital Signs Vital Sign Reading Time Taken Comments Blood Pressure 141/83 05/17/2025 9:21 PM CDT Pulse 88 05/17/2025 9:21 PM CDT Temperature 36.6 C (97.8 F) 05/17/2025 6:40 PM CDT Respiratory Rate 17 05/17/2025 9:21 PM CDT Oxygen Saturation 98% 05/17/2025 9:21 PM CDT Inhaled Oxygen Concentration - - Weight 88.5 kg (195 lb) 05/17/2025 6:40 PM CDT Height 152.4 cm (5') 05/17/2025 6:40 PM CDT Body Mass Index 38.08 05/17/2025 6:40 PM CDT Plan of Treatment Health Maintenance Due Date Last Done Comments Hepatitis C Virus (HCV) Screening 1980 Hepatitis B Immunization (1 of 3 - 19+ 3-dose series) 1999 Pap Smear 2001 Human Papillomavirus (HPV) Immunization (1 - 3-dose SCDM series) 2007 Cervical Cancer Screening (CCS) 2010 HPV/Cotest 2010 Medicare Initial AWV [id number] 06/02/2010 Mammogram 03/27/2023 03/27/2022 Cologuard 2025 Immunochemical Fecal Occult Blood 2025 08/26/2023, 09/30/2020, 10/10/2019, Additional history exists Influenza Immunization (#1) 2025 SARS-COV-2 Immunization ( season) 2025 Colonoscopy 05/10/2032 05/10/2025, 09/0 11/2020, 10/12/2019, Additional history exists Colorectal Cancer Screening 05/10/2032 Respiratory Syncytial Virus (RSV) Immunization (Adult) (1 - 1-dose 75+ series) 2055 Pneumococcal Immunization Combined Aged Out 07/05/2014 No longer eligible based on patient's age to complete this topic DTaP/Tdap/Td Immunization Discontinued 04/10/2016 TdaP Immunization Completed 04/10/2016 Discussion re Starting/Frequency of Mammograms Completed 03/27/2022 Meningococcal Immunization (ACWY) Aged Out No longer eligible based on patient's age to complete this topic Rotavirus Immunization Aged Out No lo nger eligible based on patient's age to complete this topic Procedures Procedure Name Priority Date/Time Associated Diagnosis Comments CBC WITH AUTO DIFFERENTIAL STAT 05/17/2025 7:22 PM CDT LIPASE STAT 05/17/2025 7:22 PM CDT MAGNESIUM (MG) STAT 05/17/2025 7:22 PM CDT CMP (COMPREHENSIVE METABOLIC PANEL) STAT 05/17/2025 7:22 PM CDT COMPLETE BLOOD COUNT (CBC) WITH DIFF STAT 05/17/2025 7:[address] RENAL STONE STUDY (ABDOMEN AND PELVIS W/O CONTRAST) Stat with Interpretation 05/17/2025 7:01 PM CDT STOOL, OCCULT BLOOD, DIAGNOSTIC, VIA GUAIAC STAT 08/26/2023 1:29 PM CDT FAYE SCREENING BILATERAL DIGITAL W CAD W DIMITRI Routine 03/27/2022 3:53 PM CDT Visit for screening mammogram HM COLONOSCOPY Routine 04/17/2015 from Last 3 Months or Most Recently Relevant to Health Maintenance Results * (ABNORMAL) CBC with Auto Differential (05/17/2025 7:22 PM CDT) WBC 11.50 4.00 - 12.00 10(3)/mcL 05/17/2025 7:51 PM CDT [facility] RBC 3.97 3.80 - 5.30 10(6)/mcL 05/17/2025 7:51 PM CDT [facility] HEMOGLOBIN (HGB) 11.8(L) 12.0 - 15.8 g/dL 05/17/2025 7:51 PM CDT [facility] HEMATOCRIT (HCT) 36.5 36.0 - 47.0 % 05/17/2025 7:51 PM CDT [facility] MCV 91.9 82.0 - 96.0 fL 05/17/2025 7:51 PM [facility]T [facility] MCH 29.7 26.0 - 34.0 pg 05/17/2025 7:51 PM CDT [facility] MCHC 32.3 31.0 - 36.0 g/dL 05/17/2025 7:51 PM CDT [facility] PLATELET COUNT 321 140 - 440 10(3)/mcL 05/17/2025 7:51 PM CDT [facility] RDW 15.1 11.8 - 15.5 % 05/17/2025 7:51 PM CDT [facility] MPV 11.5 9.7 - 12.4 fL 05/17/2025 7:51 PM CDT [facility] NEUTROPHILS 68.9 47.0 - 73.0 % 05/17/2025 7:51 PM CDT [facility] LYMPHOCYTES 21.8 18.0 - 42.0 % 05/17/2025 7:51 PM CDT [facility] MONOCYTES 6.5 4.0 - 12.0 % 05/17/2025 7:51 PM CDT [facility] EOSINOPHILS 2.1 0.0 - 5.0 % 05/17/2025 7:51 PM CDT [facility] BASOPHILS 0.4 0.0 - 1.0 % 05/17/2025 7:51 PM CDT [facility] IMMATURE GRANULOCYTE 0.3 0.0 - 0.4 % 05/17/2025 7:51 PM CDT [facility] Comment:Immature Granulocyte s includes Metamyelocytes, Myelocytes, and Promyelocytes. ABSOLUTE NEUTROPHILS 7.91(H) 1.60 - 7.70 10(3)/mcL 05/17/2025 7:51 PM CDT [facility] ABSOLUTE LYMPHOCYTES 2.51 1.30 - 3.20 10(3)/mcL 05/17/2025 7:51 PM CDT [facility] ABSOLUTE MONOCYTES 0.75 0.20 - 1.00 10(3)/mcL 05/17/2025 7:51 PM CDT [facility] ABSOLUTE EOSINOPHIL 0.24 0.00 - 0.40 10(3)/mcL 05/17/2025 7:51 PM CDT [facility] ABSOLUTE BASOPHILS 0.05 0.00 - 0.10 10(3)/mcL 05/17/2025 7:51 PM CDT [facility] ABSOLUTE IMMATURE GRANULOCYTE 0.04(H) 0.00 - 0.03 10 (3) mcL. 05/17/2025 7:51 PM CDT [facility] NRBC PER 100 WBC 0 05/17/20 7:51 PM CDT [facility] Blood Venipuncture / Unknown 05/17/2025 7:22 PM CDT 05/17/2025 7:48 PM CDT Perico Song MD HEMATOLOGY ORDERABLES Fin al Result Performing Organization Address [facility] Co de Phone Number [facility] [address] [place] [address] * Magnesium (05/17/2025 7:22 PM CDT) MAGNESIUM 1.9 1.6 - 2.6 mg/dL 05/17/2025 8:07 PM CDT [facility] Comment: Specimen is hemolyzed. In vitro hemolysis could affect results. Clinical correlation advised. Blood Venipuncture / Unknown 05/17/2025 7:22 PM CDT 05/17/2025 7:48 PM CDT us Perico Song MD CHEMISTRY ORDERABLES Karis l Result Performing Organization Address City/[facility] Co de Phone Number [facility] [address] [place] [address] * Lipase (05/17/2025 7:22 PM CDT) LIPASE 32 8 - 78 U/L 05/17/2025 8:07 PM CDT [facility] Blood Venipuncture / Unknown 05/17/2025 7:22 PM CDT 05/17/2025 7:48 PM CDT us Perico Song MD CHEMISTRY ORDERABLES Karis l Result [facility] [address] [place] [address] * (ABNORMAL) CMP (05/17/2025 7:22 PM CDT) SODIUM 141 136 - 145 mmol/L 05/17/2025 8:07 PM CDT [facility] POTASSIUM 4.6 3.5 - 5.1 mmol/L 05/17/2025 8:07 PM CDT [facility] Comment: Specimen is hemolyzed. In vitro hemolysis could affect results. Clinical correlation advised. CHLORIDE 110(H) 98 - 107 mmol/L 05/17/2025 8:07 PM CDT [facility] CO2, VENOUS 22 22 - 30 mmol/L 05/17/2025 8:07 PM CDT [facility] ANION GAP 13.6 <18.0 mmol/L 05/17/2025 8:07 PM CDT [facility] GLUCOSE 101(H) 70 - 99 mg/dL 05/17/2025 8:07 PM CDT [facility] BUN 8 5 - 18 mg/dL 05/17/2025 8:07 PM CDT [facility] CREATININE, BLOOD 1.06(H) 0.60 - 1.00 mg/dL 05/17/2025 8:07 PM CDT [facility] BUN/CREATININE RATIO 8(L) 12 - 20 ratio 05/17/2025 8:07 PM CDT [facility] TOTAL PROTEIN 8.3(H) 6.0 - 8.0 g/dL 05/17/2025 8:07 PM CDT [facility] Comment: Specimen is hemolyzed. In vitro hemolysis could affect results. Clinical correlation advised. ALBUMIN 3.8 3.5 - 5.0 g/dL 05/17/2025 8:07 PM CDT [facility] A/G RATIO 0.8(L) 1.0 - 2.2 05/17/2025 8:07 PM CDT [facility] CALCIUM 9.1 8.7 - 10.5 mg/dL 05/17/2025 8:07 PM CDT [facility] T BILI 0.3 0.2 - 1.2 mg/dL 05/17/2025 8:07 PM CDT [facility] SGOT (AST) 26 <43 U/L 05/17/2025 8:07 PM CDT [facility] Comment: Specimen is hemolyzed. In vitro hemolysis could affect results. Clinical correlation advised. SGPT (ALT) 12 <56 U/L 05/17/2025 8:07 PM CDT [facility] ALKALINE PHOSPHATASE 191(H) 40 - 150 U/L 05/17/2025 8:07 PM CDT [facility] GFR, ESTIMATED >60 >=60 05/17/2025 8:07 PM CDT [facility] Comment: Creatinine Clearance is the preferred criteria for selecting drug dose adjustments in renally impaired patients. The GFR is provided as additional pertinent clinical information. GFR is reported in mL/min/1.73 sq m. Calculation based on the Chronic Kidney Disease Epidemiology Collaboration (CKD- EPI) equation refit without adjustment for race. GFR, EST. >60 >=60 025 8:07 PM CDT [facility] GFR, EST. NONAFRICAN 56(L) >=60 05/17/2025 8:07 PM CDT [facility] Blood Venipuncture / Unknown 05/17/2025 7:22 PM CDT 05/17/2025 7:48 PM CDT us Perico Song MD CHEMISTRY ORDERABLES Karis l Result [facility] [place] [address] * CT RENAL STONE STUDY (ABDOMEN AND PELVIS W/O CONTRAST) (05/17/2025 7:01 PM CDT) Anatomical Region Laterality Modality Abdomen N/A Computed Tomogra phy 05/17/2025 8:46 PM CDT Impressions 05/17/2025 8:48 PM CDT IMPRESSION: 1. No urinary tract calculi or obstructive uropathy. 2. Additional findings; as detailed. 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 Hx of AAA, IBS, shingles, GERD TECHNIQUE: CT scan of the abdomen and pelvis performed without intravenous and without oral contrast using helical scanning technique. Reconstructed coronal and sagittal MPR images reviewed. All images stored on PACS. Automated exposure control was used as a dose optimization technique for this examination. COMPARISON: CT of the abdomen and pelvis dated 10/16/2024. FINDINGS: The sensitivity for detection of visceral lesions is diminished without the use of intravenous contrast. LOWER CHEST: No significant pulmonary abnormalities. No effusion. LIVER: Normal size. No identified cystic or solid masses. GALLBLADDER: Contracted limiting evaluation. No stones identified. No wall thickening or inflammatory changes. BILE DUCTS: No intrahepatic or extrahepatic ductal dilatation. SPLEEN: Normal size. No focal lesions. PANCREAS: No identified cystic or solid masses. No significant calcifications. No adjacent inflammation or peripancreatic fluid collections. Pancreatic duct not dilated. ADRENALS: Normal. KIDNEYS/URINARY TRACT: No identified significant cystic or solid masses. No stones. No hydronephrosis or hydroureter. Urinary bladder is unremarkable. GI: No dilated bowel loops. No obvious wall thickening. A small appendicolith is seen within the base of the appendix lumen. No significant diverticular disease. PERITONEUM: No ascites or free air. RETROPERITONEUM: No mass or adenopathy. REPRODUCTIVE: No significant abnormality. VASCULATURE: No abdominal aortic aneurysm. MUSCULOSKELETAL: No acute abnormality. Multilevel degenerative changes of the spine. OTHER: No other abnormality. 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 Hx of AAA, IBS, shingles, GERD TECHNIQUE: CT scan of the abdomen and pelvis performed without intravenous and without oral contrast using helical scanning technique. Reconstructed coronal and sagittal MPR images reviewed. All images stored on PACS. Automated exposure control was used as a dose optimization technique for this examination. COMPARISON: CT of the abdomen and pelvis dated 10/16/2024. FINDINGS: The sensitivity for detection of visceral lesions is diminished without the use of intravenous contrast. LOWER CHEST: No significant pulmonary abnormalities. No effusion. LIVER: Normal size. No identified cystic or solid masses. GALLBLADDER: Contracted limiting evaluation. No stones identified. No wall thickening or inflammatory changes. BILE DUCTS: No intrahepatic or extrahepatic ductal dilatation. SPLEEN: Normal size. No focal lesions. PANCREAS: No identified cystic or solid masses. No significant calcifications. No adjacent inflammation or peripancreatic fluid collections. Pancreatic duct not dilated. ADRENALS: Normal. KIDNEYS/URINARY TRACT: No identified significant cystic or solid masses. No stones. No hydronephrosis or hydroureter. Urinary bladder is unremarkable. GI: No dilated bowel loops. No obvious wall thickening. A small appendicolith is seen within the base of the appendix lumen. No significant diverticular disease. PERITONEUM: No ascites or free air. RETROPERITONEUM: No mass or adenopathy. REPRODUCTIVE: No significant abnormality. VASCULATURE: No abdominal aortic aneurysm. MUSCULOSKELETAL: No acute abnormality. Multilevel degenerative changes of the spine. OTHER: No other abnormality. THIS IS AN ELECTRONICALLY VERIFIED FINAL REPORT 05/17/2025 8:46 PM - Electronically signed by Marvin BARKER Report ID: [id number] Reading Location: [id number] IMPRESSION: 1. No urinary tract calculi or obstructive uropathy. 2. Additional findings; as detailed. us Perico Song MD IMG CT ORDERABLES Final R esult * (ABNORMAL) Stool, Occult Blood, Diagnostic (08/26/2023 1:29 PM CDT) OCCULT BLOOD DIAG Positive(A ) Negative 08/26/2023 1:53 PM CDT [facility] Stool STOOL SPECIMEN / Unknown Non-Phlebotomy Collection / Unknown 08/26/2023 1:29 PM CDT 08/26/2023 1:34 PM CDT us Tania Barber APRN, COMMUNICATIONS DEPARTMENT HEAD BODY FLUIDS & STOOLS ORDERABLES Final Result [facility] [place] [address] * FAYE SCREENING BILATERAL DIGITAL W CAD W DIMITRI (03/27/2022 3:53 PM CDT) Anatomical Region Laterality Modality breast Bilateral Mammography 03/27/2022 3:06 PM CDT Narrative 03/28/2022 4:08 PM CDT - FAYE SCREENING BILATERAL DIGITAL W CAD W DIMITRI BILATERAL DIGITAL SCREENING MAMMOGRAM 3D/2D WITH CAD WITH MEDIOLATERAL OBLIQUE CRANIOCAUDAL: 03/27/2022 The study was acquired using digital technology and interpreted from soft copy. Current study was also evaluated with ICAD version 7.2. 2D digital mammographic views, as well as 3D digital tomosynthesis were performed in the CC and MLO projections. CLINICAL: Baseline screening. Patient has no complaints. No personal history of cancer. No family history of breast cancer. COMPARISONS: No prior exams were available for comparison. BREAST TISSUE:The tissue of both breasts is predominantly fatty. FINDINGS: No significant masses, calcifications, or other findings are seen in either breast. IMPRESSION: BI-RAD 1 NEGATIVE There is no mammographic evidence of malignancy. A 1 year screening mammogram is recommended. A letter will be sent to the patient with these results. The patient will be entered into a reminder system with a target due date of 1 year for her next screening exam. Electronically signed by: Jessa frank/jacobo:03/28/2022 15:31:08 Speed Winder(s): Moni Izaguirre([place])(M), [facility] letter sent: Normal Exam Reading location: [place] BI-RADS: 1 Negative Procedure Note Jessa Bravo MD - 03/28/2022 - FAYE SCREENING BILATERAL DIGITAL W CAD W DIMITRI BILATERAL DIGITAL SCREENING MAMMOGRAM 3D/2D WITH CAD WITH MEDIOLATERAL OBLIQUE CRANIOCAUDAL: 03/27/2022 The study was acquired using digital technology and interpreted from soft copy. Current study was also evaluated with TelsimaD version 7.2. 2D digital mammographic views, as well as 3D digital tomosynthesis were performed in the CC and MLO projections. CLINICAL: Baseline screening. Patient has no complaints. No personal history of cancer. No family history of breast cancer. COMPARISONS: No prior exams were available for comparison. BREAST TISSUE:The tissue of both breasts is predominantly fatty. FINDINGS: No significant masses, calcifications, or other findings are seen in either breast. IMPRESSION: BI-RAD 1 NEGATIVE There is no mammographic evidence of malignancy. A 1 year screening mammogram is recommended. A letter will be sent to the patient with these results. The patient will be entered into a reminder system with a target due date of 1 year for her next screening exam. Electronically signed by: Jessa frank/jacobo:03/28/2022 15:31:08 Speed Winder(s): Moni Izaguirre([place])(M), [facility] letter sent: Normal Exam Reading location: [place] BI-RADS: 1 Negative us Sukhwinder CÁRDENAS MAMMO ORDERABLES Final Resul t * HM COLONOSCOPY (04/17/2015) us Stephen Hearn MD PROCEDURE/MINOR SURGICAL ORDER MYKE Final Result from Last 3 Months or Most Recently Relevant to Health Maintenance Insurance MEDICAID [place] Advance Directives * Full Code (Latest Code Status on File) Date Activated Date Inactivated Comments 02/06/2024 5:56 AM 02/07/2024 3:28 PM CPR-Full Treat ment: FULL ARREST: Attempt Resuscitation/CPR wit intubation and mechanical ventilation. PRE-ARREST: Use entire range of life support measures to stabilize the patient. * Full Code Date Activated Date Inactivated Comments 10/11/2019 6:17 AM 10/13/2019 2:47 PM CPR-Full T reatment: FULL ARREST: Attempt Resuscitation/CPR wit intubation and mechanical ventilation. PRE-ARREST: Use entire range of life support measures to stabilize the patient. Care Teams Ecommerce Analyst Relationship Specialty Start Date End Date Stephen Hearn MD [address] [place] [address] [facility] [address] [place] [address] PCP - General Family Medicine 06/15/20 Hema Ochoa MD Gastroenterology 04/28/16 Fahad Glover [address] [facility] [id number] [place] [address] 06/13/21 Mat Encinas MD [address] [address] Consulting Physician Colon and Rectal Surgery 09/09/23 Caridad Padilla APRN, COMMUNICATIONS DEPARTMENT HEAD [address] [place] [address] Nurse Practitioner Advanced Practice Nurse 08/21/23 Ge Keen MD [address] [place] [address] Consulting Physician Gastroenterology 01/01/23
--- OUTSIDE RECORDS SUMMARY | 2025-07-27 17:46 | XMS_ITS | Encounter Summary ---
Author Organization [facility] Address [address] [place] [address] Phone Care Team Providers Care Farm Equipment Engineer Name Role Phone Hema Ochoa MD Unavailable Stephen Hearn MD Primary Care Provider [phone] Fahad Glover Unavailable Mat Encinas MD Unavailable Caridad Padilla APRN, SHIPFITTER Unavailable Ge Keen MD Unavailable [phone] Reason for Visit * Reason Comments Medication Refill Encounter Details Date Type Department Care Team (Late st Contact Info) Description 07/26/2025 Refill [facility] - Gastroenterology [facility] [address] [place] [id number] Caridad Padilla APRN, SHIPFITTER [address] [place] [address] Medication Refill Social History Tobacco Use Types Packs/Day Years Used Date Smoking Tobacco: Never Smokeless Tobacco: Never Alcohol Use Standard Drinks/Week Comments No 0 (1 standard drink = 0.6 oz pur e alcohol) [facility] Utilities Answer Date Recorded In the past 12 months has [employer], gas, oil, or water [employer] threatened to shut off services in your [...] often do you attend chur ch or zoroastrianism services? Never 02/06/2024 Do you belong to any clubs o r organizations such as sabianism groups, unions, fraternal or athletic groups, or [...] and heating? Not hard at all 02/06/2024 [facility] - Occupational Stress [...] place to sleep or slept in a care home (including now)? No 02/06/2024 Sexually Active [...] Gastroesophageal reflux disease without esophagitis Esophageal reflux Irritable bowel syndrome with diarrhea Irritable bowel syndrome documented in this encounter Care Teams Farm Equipment Engineer Relationship Specialty Start Date End Date Stephen Hearn MD [address] [facility] [address] [place] [address] PCP - General Family Medicine 06/15/20 Hema Ochoa MD Gastroenterology 04/28/16 Fahad Glover [id number] [place] [address] 06/13/21 Mat Encinas MD [address] [facility] [address] [place] [address] Consulting Physician Colon and Rectal Surgery 09/09/23 Caridad Padilla APRN, SHIPFITTER [address] [place] [address] Nurse Practitioner Advanced Practice Nurse 08/21/23 Ge Keen MD [address] [place] [address] Consulting Physician Gastroenterology 01/01/23 documented as of this encounter
== END 2025-07-27 18:25 | disposition home or self-care (01) ==
PROVIDERS: Emergency Provider Registered Nurse; PCP Family Medicine
DX: M25.561 Pain in right knee (principal); K21.9 Gastro-esophageal reflux disease without esophagitis; Z86.718 Personal history of other venous thrombosis and embolism; Z79.01 Long term (current) use of anticoagulants
CPT/HCPCS: 73564; 99213; G0463